=== PATIENT | male | born 1985 | race Caucasian/White ===

== ENCOUNTER 2020-11-24 07:38 | Emergency (ER) | payer BC ==
[~2020-11-24] VITALS: Ht 185.4 cm; Wt 81.8 kg
[~2020-11-24 07:38] MED LIST: ANTIDEPRESSANT; CEPHALEXIN250 M1 PO; CEPHALEXIN500 M1 PO; DICLOXACILLIN250 MG PO; MOTRIN 800800 MG/TAB PO; NO HOME MEDICATIONS; NORCO 325 MG-51 TAB PO; PHENERGAN 25 TA25 MG PO; PROMETHAZINE12.5 M5 PO; ZOVIRAX400 MG PO
[2020-11-24 07:42] VITALS: TEMP 98.1
[2020-11-24] MEDS ORDERED: ROXICODONE 55 MG/TAB PO (09:02)
[2020-11-24] MEDS ORDERED: TYLENOL 325MG325 MG PO (09:02)
[2020-11-24] MEDS ORDERED: CEPHALEXIN500 M1 PO (09:02)
[2020-11-24] MEDS ORDERED: CRUTCHES MC (09:04)
[2020-11-24 09:30] VITALS: BP 117/72; PULSE 65
== END 2020-11-24 09:30 | disposition home or self-care (01) ==
LOC: COL.ER 07:38
DX: S82.201A Unspecified fracture of shaft of right tibia, initial encounter for closed fracture (principal); S81.811A Laceration without foreign body, right lower leg, initial encounter; W26.8XXA Contact with other sharp object(s), not elsewhere classified, initial encounter
CPT/HCPCS: J1885; L1846

== ENCOUNTER 2021-09-09 17:30 | Inpatient (IN) | payer OTHER, BC ==
[~2021-09-09] VITALS: Ht 185.4 cm; Wt 77.3 kg
[~2021-09-09 17:30] MED LIST changes: +CRUTCHES MC; +ROXICODONE 55 MG/TAB PO; +TYLENOL 325MG325 MG PO
[2021-09-09 18:40] LABS: BASO # 0.1 K/mm3 (0.0-0.2); BASO % 0.8 % (0.0-2.0); EOS % 0.1 % (0.0-4.0); GRAN # 5.7 K/mm3 (1.4-6.5); GRAN % 75.2 % (42.2-75.2); HEMATOCRIT 41.8 % (42.0-52.0); HEMOGLOBIN 14.9 g/dl (13.5-18.0); LYMPH # 1.1 K/mm3 (1.2-3.4); LYMPH % 14.4 % (20.0-51.0); MEAN CELL VOLUME 91 fl (80.0-100.0); MEAN CORPUSCULAR HEMOGLOBIN 32 pg (27-31); MEAN CORPUSCULAR HGB CONC 36 g/dl (33.0-37.0); MEAN PLATELET VOLUME 10.5 fl (7.4-10.4); MONO # 0.7 K/mm3 (0.1-0.6); MONO % 9.2 % (1.7-9.3); PLATELET COUNT 160 K/mm3 (130-400); REDCELL DISTRIBUTION WIDTH-CV 11.7 % (11.5-14.5)
[2021-09-09 18:57] LABS: ALBUMIN 4.5 gm/dL (3.5-5.0); BILIRUBIN,TOTAL 0.9 mg/dL (0.2-1.2); CREATININE, serum 0.81 mg/dL (0.72-1.25); POTASSIUM 3.3 mmol/L (3.5-4.5); TOTAL PROTEIN 7.6 gm/dL (6.2-8.1)
[2021-09-10] VITALS (8 sets, daily range): BP systolic 131–152; BP diastolic 86–92; PULSE 60–89; TEMP 98–99
[2021-09-10 08:30] LABS: BASO # 0.1 K/mm3 (0.0-0.2); BASO % 0.8 % (0.0-2.0); EOS # 0.1 K/mm3 (0.0-0.7); EOS % 0.8 % (0.0-4.0); GRAN % 63.9 % (42.2-75.2); HEMATOCRIT 41.2 % (42.0-52.0); HEMOGLOBIN 14.4 g/dl (13.5-18.0); LYMPH # 1.7 K/mm3 (1.2-3.4); LYMPH % 21.8 % (20.0-51.0); MEAN CELL VOLUME 93 fl (80.0-100.0); MEAN CORPUSCULAR HEMOGLOBIN 33 pg (27-31); MEAN CORPUSCULAR HGB CONC 35 g/dl (33.0-37.0); MEAN PLATELET VOLUME 10.4 fl (7.4-10.4); MONO % 12.4 % (1.7-9.3); PLATELET COUNT 134 K/mm3 (130-400); RED BLOOD COUNT 4.41 M/mm3 (4.20-5.60); REDCELL DISTRIBUTION WIDTH-CV 11.8 % (11.5-14.5)
[2021-09-10 08:47] LABS: CALCIUM 8.8 mg/dL (8.4-10.2); CREATININE, serum 0.84 mg/dL (0.72-1.25); POTASSIUM 3.5 mmol/L (3.5-4.5)
--- NOTE | 2021-09-10 09:47 | NUR ---
PT PLEASANT, AOX4, TREMORS AT REST, PT REPORTS X5 DIARRHEA THIS AM, ASSESSMENT PERFORMED, MEDICATIONS GIVEN, YOLIE TERRAZAS GAVE VERBAL ORDER TO ADVANCE PT TO [facility], JELLO GIVEN ALONG WITH GATORADE AND WATER. PT DENIES TAKING MEDICATIONS AT HOME, DENIES ANY ALLERGIES, PT REPORTS SOME UNSTEADINESS WITH AMBULATION SO ENCOURAGED TO CALL PULLEY MAINTAINER LIGHT THE FIRST TIME HE HAS TO GET UP. REPORTS HALLUCINATIONS WHEN HE CLOSES HIS EYES BUT NOT WITH THEM OPEN. DENIES PAIN, DENIES NAUSEA AT THIS TIME. NO OTHER NEEDS
--- NOTE | 2021-09-10 10:32 | NUR ---
First visit from the sand conditioner. No needs right now.
--- NOTE | 2021-09-10 10:34 | NUR ---
First visit from the environmental engineering technician. No needs right now.
--- NOTE | 2021-09-10 11:29 | NUR ---
[facility] met with the patient to discuss discharge plan. The patient lives in [place] with his , Jeff (ph#[phone]). He reports independence with ADLs and does not have any DME. The patient receives primary care from the [facility], but states that he is also established with Dr. Dakota Sullivan. He receives his medications from [facility] and reports no difficulties obtaining his meds. The patient does not have a DPOA-HC and was not interested in completing one while here. The patient plans on returning home with his upon discharge. The patient has a history of alcohol use and has been drinking 10-14 alcoholic beverages daily. The hospitalist notified [facility] that the patient is not interested in inpatient treatment, but interested in resources for outpatient treatment. AVIS addressed this with the patient. The patient reports that he is somewhat interested in outpatient treatment. He was interested in a list of local resources. AVIS provided him with that list. He had no other concerns for [facility]IS at this time. No additional needs at this time. *Discharge plan: home with *
--- NOTE | 2021-09-10 17:38 | NUR ---
PT EAGER FOR DISCHARGE, PT MENTIONS MULTIPLE TIMES HE DOES NOT KNOW WHY HE'S HERE, PT DENIES DIARRHEA DURING SHIFT, PT GOT UP MULTIPLE TIMES ON HIS OWN BUT STEADY, BED ALARM SET. ATIVAN GIVEN PER DETOX SCORING, /GF VISITED EARLIER IN SHIFT, NICOTINE PATCH ORDERED FOR PT, NO OTHER NEEDS
--- NOTE | 2021-09-10 21:00 | NUR ---
Initial shift assessment done- denies pain/SOB,denies diarrhea, denies N/V,, states did eat some of his supper and no nausea. Denies anxiety, VSS, Tele on-SR,, IV fluids of NS w/20meq K at 75cc/hr, scoring 1 on detox protocol at this time
[2021-09-11 00:43] VITALS: BP 150/77; PULSE 76; TEMP 99.1
[2021-09-11 02:32] VITALS: PULSE 78
[2021-09-11 04:20] VITALS: BP 132/88; PULSE 65; TEMP 98.9
--- NOTE | 2021-09-11 04:20 | NUR ---
Awakened for vitals- VSS, very upset, agitated- within minutes patient had ripped IV tubing in half- pulled out IV-- took off all Tele leads- totally dressed- out in the liang stating he is leaving ,will not listen to reasoning-- security notified of aggressive type behavior, Sheila TERRAZAS called -will be up immediately-- Pt signing AMA form, Sheila here to talk with him-had cigarette in his mouth-informed he cannot light that here- - just kept walking down the liang-and left the building AMA. casting and pasting supervisor here
--- NOTE | 2021-09-11 04:37 | NUR ---
Has left the building -AMA
== END 2021-09-11 04:40 | disposition left against medical advice (07) | DRG 894 ==
LOC: COL.ER 17:30 → MEDICAL 20:29
PROVIDERS: Student in an Organized Health Care Education/Training Program; ADMIT Student in an Organized Health Care Education/Training Program
DX: F10.939 Alcohol use, unspecified with withdrawal, unspecified (principal); E87.6 Hypokalemia; F17.210 Nicotine dependence, cigarettes, uncomplicated; Z20.822 Contact with and (suspected) exposure to COVID-19
CPT/HCPCS: 99223-AI; 99233-AI; J1650; J2060; J2405; J3411; J3480; J7030

== ENCOUNTER 2022-01-20 13:04 | Inpatient (IN) | payer OTHER, BC ==
[~2022-01-20] VITALS: Ht 185.4 cm; Wt 72.7 kg
[2022-01-20 13:49] LABS: BASO # 0.1 K/mm3 (0.0-0.2); BASO % 0.8 % (0.0-2.0); GRAN # 7.6 K/mm3 (1.4-6.5); HEMATOCRIT 44.2 % (42.0-52.0); HEMOGLOBIN 16.1 g/dl (13.5-18.0); LYMPH # 0.4 K/mm3 (1.2-3.4); LYMPH % 4.6 % (20.0-51.0); MEAN CELL VOLUME 93 fl (80.0-100.0); MEAN CORPUSCULAR HEMOGLOBIN 34 pg (27-31); MEAN CORPUSCULAR HGB CONC 36 g/dl (33.0-37.0); MEAN PLATELET VOLUME 10.8 fl (7.4-10.4); MONO # 0.6 K/mm3 (0.1-0.6); MONO % 6.4 % (1.7-9.3); PLATELET COUNT 118 K/mm3 (130-400); RED BLOOD COUNT 4.78 M/mm3 (4.20-5.60); REDCELL DISTRIBUTION WIDTH-CV 11.6 % (11.5-14.5)
[2022-01-20 14:08] LABS: ALBUMIN 4.5 gm/dL (3.5-5.0); BILIRUBIN,TOTAL 1.2 mg/dL (0.2-1.2); CALCIUM 9.2 mg/dL (8.4-10.2); CREATININE, serum 0.87 mg/dL (0.72-1.25); MAGNESIUM 1.5 mg/dL (1.6-2.6); POTASSIUM 3.1 mmol/L (3.5-4.5); TOTAL PROTEIN 7.9 gm/dL (6.2-8.1)
[2022-01-20 16:50] VITALS: BP 177/90; PULSE 91; TEMP 99.4
--- NOTE | 2022-01-20 17:34 | NUR ---
THE PATIENT'S LYDIA IS AT THE BEDSIDE. ADMINISTERED ATIVAN AND MEDICATIONS PER MAR UPON ARRIVAL. THE PATIENT'S INITIAL CIWA SCORE IS 11. PATIENT IS A&OX4. DENIES ANY NEEDS AT THIS TIME. 5/10 PAIN IN THE ABDOMEN. THROAT IS VERY SORE FROM THROWING UP. PATIENT STATES 36 TIMES IN THE PAST 24 HOURS. NO OTHER CONCERNS AT THIS TIME. ADMISSION AND INTAKE COMPLETED.
[2022-01-20 18:27] VITALS: BP 149/95; PULSE 80; TEMP 98.6
--- NOTE | 2022-01-20 18:55 | NUR ---
THE PATIENT HAS RETURNED FROM CT AND IS IN BED. ASKED PHOTOGRAPHIC PLATEMAKER TO PLACE YELLOW FALL RISK GOWN AND SOCKS ON THE PATIENT PER FALL RISK PROTOCOL. THE BED ALARM IS ON AND MEDICATIONS GIVEN PER ORDERS. NO OTHER CONERNS WITH THIS PATIENT. REPORT GIVEN TO ODIN HERNANDEZ.
[2022-01-20 20:05] VITALS: BP 151/90; PULSE 94; TEMP 99
--- NOTE | 2022-01-20 20:49 | NUR ---
CIWA-9 , MEDICATED PER PROTOCOL. BED ALARM ON . PT V/U DIRECTIONS OF NOT GETTING UP WITHOUT ASST. NEEDS MET.
[2022-01-20 22:29] VITALS: BP 135/75; PULSE 79; TEMP 98.6
--- NOTE | 2022-01-20 23:18 | NUR ---
PT HAS BEEN SCORING 9 CIWA- ASKED IF I WOULD TAKE HIM OUT FOR CIGARETTE EARLY IN SHIFT, KARI TERRAZAS CALLED, NICOTINE PATCH ORDERED. PT HAS BEEN HERE IN THE PAST AND LEFT AMA. HAS LEARNED HOW TO DISCONNECT IV, TURN OFF IV PUMP, TURN ON AND OFF BED ALARMS. FOUND SETTING ON BENCH IN ROOM WITH ALL LEADS AND IV REMOVED. INSTRUCTED ON SAFTY AND V/U YET DOES OPPOSITE. CONT TO MONITOR BEST CAN. DOOR OPEN AND NEXT TO NURSE STATION.
--- NOTE | 2022-01-20 23:43 | NUR ---
RESTART IV TO LEFT FA, TELE MONITOR REAPPLIED.
[2022-01-21 03:26] VITALS: BP 163/83; PULSE 101; TEMP 99.1
--- NOTE | 2022-01-21 03:44 | NUR ---
HAS PULLED OUT 2 IVS, TOOK TELE OFF REPEATLY; ATIVAN PER ORDER. KARI AND MISBAH HAVE BEEN NOTIFIED OF PT TURNING OFF BED ALARM, IV PUMP WHEN HE WANTS TO GET UP. MONITORING.
[2022-01-21 05:59] VITALS: BP 149/96; PULSE 90; TEMP 98.8
[2022-01-21 06:39] LABS: BASO % 0.5 % (0.0-2.0); EOS # 0.1 K/mm3 (0.0-0.7); GRAN # 4.4 K/mm3 (1.4-6.5); GRAN % 70.5 % (42.2-75.2); LYMPH # 1.2 K/mm3 (1.2-3.4); LYMPH % 19.7 % (20.0-51.0); MEAN CELL VOLUME 95 fl (80.0-100.0); MEAN CORPUSCULAR HEMOGLOBIN 33 pg (27-31); MEAN CORPUSCULAR HGB CONC 35 g/dl (33.0-37.0); MEAN PLATELET VOLUME 11.6 fl (7.4-10.4); MONO # 0.5 K/mm3 (0.1-0.6); PLATELET COUNT 96 K/mm3 (130-400); RED BLOOD COUNT 4.23 M/mm3 (4.20-5.60); REDCELL DISTRIBUTION WIDTH-CV 11.7 % (11.5-14.5)
[2022-01-21 06:52] LABS: ALBUMIN 3.7 gm/dL (3.5-5.0); CALCIUM 8.8 mg/dL (8.4-10.2); CREATININE, serum 0.76 mg/dL (0.72-1.25); MAGNESIUM 1.9 mg/dL (1.6-2.6); PHOSPHOROUS 3.2 mg/dL (2.3-4.7)
[2022-01-21 06:54] LABS: POTASSIUM 2.9 mmol/L (3.5-4.5)
[2022-01-21 06:55] LABS: HEMOGLOBIN 14.1 g/dl (13.5-18.0)
--- NOTE | 2022-01-21 07:41 | NUR ---
PHYSICIAN PLACED ORDER FOR PHARMACY TO DOSE POTASSIUM REPLACEMENT, CALLED PHARMACY AND REPLACEMENT PER POTASSIUM PROTOCOL PLACED IN COMPUTER.
[2022-01-21 08:05] VITALS: BP 135/90; PULSE 85; TEMP 98.1
--- NOTE | 2022-01-21 10:00 | NUR ---
WHEN ENTERING PT ROOM PT NOT ATTACHED TO IV FLUIDS. ATTACHED PT TO NEW BAG OF IV FLUIDS AND NEW TUBING. MORNING PO MEDS GIVEN, ASSESSMENT PERFORMED, PT DENIES HALLUCINATIONS OR N/V. PT NOT REQUIRING ATIVAN AT THIS TIME. TREMORS FELT BUT NOT VISUALIZED. BED ALARM SET. EDUCATED PT TO NOT DETACH HIMSELF FROM IV FLUIDS OR TO GET OUT OF BED WITHOUT ASSISTANCE.
[2022-01-21 10:03] VITALS: BP 124/84; PULSE 83; TEMP 98.6
--- NOTE | 2022-01-21 15:03 | NUR ---
PT STATES "I GOTTA GET OUT OF HERE, I HAVE FAMILY COMING IN THE LOCKED DOOR". EXPLAINED VERY LOW POTASSIUM AND LAB REDRAW, PT AGREEABLE TO SEE WHAT LAB RESULTS
[2022-01-21] MEDS ORDERED: FOLIC ACID 11 MG/TA1 PO (15:51)
[2022-01-21] MEDS ORDERED: NATURE'S BLEND100 M2 PO (15:51)
--- NOTE | 2022-01-21 15:53 | NUR ---
DR. OLSEN NOTIFIED OF NORMAL POTASSIUM LAB. PT STILL WANTS TO LEAVE AMA, PT GIRLFRIEND REQUESTING LIST OF VITAMINS FOR PT TO TAKE AT HOME. DR. OLSEN RECOMENDING THIAMINE, FOLIC ACID AND MULTIVITAMIN AT DOSAGE OF WHAT HE WAS RECIEVING HERE AT HOSPITAL. PT GIRLFRIEND GIVEN LIST OF THESE VITAMINS/DOSAGE/FREQUENCY. IV AND TELE REMOVED. AMA PAPER SIGNED BY PT AND RISKS/BENEFITS OF LEAVING/STAYING WERE REVIEWED. PT THEN WALKED OUT WITH GIRLFRIEND AND PT BELONGINGS, REFUSING WHEELCHAIR OR ASSISTANCE.
== END 2022-01-21 15:59 | disposition left against medical advice (07) | DRG 439 ==
LOC: COL.ER 13:04 → MEDICAL 15:38
PROVIDERS: Emergency Medicine; ADMIT Internal Medicine
DX: K85.20 Alcohol induced acute pancreatitis without necrosis or infection (principal); F10.239 Alcohol dependence with withdrawal, unspecified; F17.210 Nicotine dependence, cigarettes, uncomplicated; E87.6 Hypokalemia; E83.42 Hypomagnesemia
CPT/HCPCS: 99223-AI; J2060; J2405; J3411; J3475; J7030; Q9967

== ENCOUNTER 2022-05-26 02:29 | Inpatient (IN) | payer OTHER, BC ==
[~2022-05-26] VITALS: Ht 185.4 cm; Wt 74.1 kg
[2022-05-26] VITALS (1052 sets, daily range): BP systolic 91–101; BP diastolic 63–69; PULSE 62–73; TEMP 97.5–98; O2SAT 74–100
[~2022-05-26 02:29] MED LIST changes: +CEFTIN500 MG PO; +FOLIC ACID 11 MG/TA1 PO; +NATURE'S BLEND100 M2 PO
[2022-05-26 03:34] LABS: BASO % 0.1 % (0.0-2.0); EOS % 0.1 % (0.0-4.0); GRAN # 13.2 K/mm3 (1.4-6.5); GRAN % 87.8 % (42.2-75.2); LYMPH # 0.9 K/mm3 (1.2-3.4); LYMPH % 6.1 % (20.0-51.0); MEAN CELL VOLUME 94 fl (80.0-100.0); MEAN CORPUSCULAR HGB CONC 37 g/dl (33.0-37.0); MEAN PLATELET VOLUME 11.8 fl (7.4-10.4); MONO # 0.7 K/mm3 (0.1-0.6); MONO % 4.8 % (1.7-9.3); PLATELET COUNT 69 K/mm3 (130-400); RED BLOOD COUNT 3.46 M/mm3 (4.20-5.60); REDCELL DISTRIBUTION WIDTH-CV 11.9 % (11.5-14.5)
[2022-05-26 03:36] LABS: ALBUMIN 3.5 gm/dL (3.5-5.0); BILIRUBIN,TOTAL 1.7 mg/dL (0.2-1.2); CALCIUM 8.2 mg/dL (8.4-10.2); CREATININE, serum 0.75 mg/dL (0.72-1.25); TOTAL PROTEIN 6.4 gm/dL (6.2-8.1)
[2022-05-26 03:39] LABS: POTASSIUM 2.5 mmol/L (3.5-4.5)
[2022-05-26 03:39] LABS: INR 1.2 (0.8-3.0); PROTHROMBIN TIME 13.3 SECONDS (9.7-12.8)
[2022-05-26 03:40] LABS: HEMATOCRIT 32.5 % (42.0-52.0); HEMOGLOBIN 11.9 g/dl (13.5-18.0); MEAN CORPUSCULAR HEMOGLOBIN 34 pg (27-31)
[2022-05-26 04:03] LABS: MAGNESIUM 1.5 mg/dL (1.6-2.6)
[2022-05-26 04:50] LABS: COLLECTION METHOD CLEAN CATCH
[2022-05-26 05:09] LABS: SQUAMOUS EPITHELIAL None Seen /hpf (0-10); TRICYCLIC ANTIDEPRESS URINE NEGATIVE; URINE BACTERIA None Seen /hpf (NONE SEEN); URINE RBC None Seen /hpf (0-2)
[2022-05-26 05:10] LABS: URINE APPEARANCE Clear (CLEAR/HAZY); URINE COLOR Yellow (YELLOW); URINE GLUCOSE Negative (NEGATIVE); URINE KETONE Negative (NEGATIVE); URINE NITRATE Negative (NEGATIVE); URINE PROTEIN(semi-quant) Negative (NEGATIVE)
[2022-05-26 05:11] LABS: URINE BLOOD TRACE-INTACT (NEGATIVE)
--- NOTE | 2022-05-26 05:48 | NUR ---
Patient arrives to unit intubated and sedated. Unable to perform suicide risk assessment or determine travel history or most recent vaccination status. Staff has been unable to get in contact with patient's , Jeff Jackson. Hospitalist, Sheila, has also attempted to make contact with patient's and has been unsuccessful. No other point of contact evident at this time. Unable to complete med rec at this time.
[2022-05-26 06:04] LABS: ARTERIAL BLD GAS O2 SATURATION 99.2 % (92-100); ARTERIAL BLD GAS TCO2 CT 32.4; ARTERIAL BLOOD GAS BASE EXCESS 7.6 (-2-2); ARTERIAL BLOOD GAS HCO3 31.2 meq/L (22-26); ARTERIAL BLOOD GAS PCO2 39.9 mmHg (35-45); ARTERIAL BLOOD GAS pH 7.51 (7.35-7.45)
[2022-05-26 06:05] LABS: ARTERIAL BLOOD GAS PO2 263.8 mmHg (80-100)
[2022-05-26 09:37] LABS: BASO % 0.1 % (0.0-2.0); EOS % 0.1 % (0.0-4.0); GRAN # 8.8 K/mm3 (1.4-6.5); GRAN % 83.1 % (42.2-75.2); HEMOGLOBIN 11.1 g/dl (13.5-18.0); LYMPH # 1.3 K/mm3 (1.2-3.4); LYMPH % 12.5 % (20.0-51.0); MEAN CELL VOLUME 97 fl (80.0-100.0); MEAN CORPUSCULAR HEMOGLOBIN 36 pg (27-31); MEAN CORPUSCULAR HGB CONC 37 g/dl (33.0-37.0); MEAN PLATELET VOLUME 12.2 fl (7.4-10.4); MONO # 0.4 K/mm3 (0.1-0.6); MONO % 3.5 % (1.7-9.3); PLATELET COUNT 63 K/mm3 (130-400); RED BLOOD COUNT 3.12 M/mm3 (4.20-5.60); REDCELL DISTRIBUTION WIDTH-CV 11.9 % (11.5-14.5)
[2022-05-26 09:38] LABS: HEMATOCRIT 30.1 % (42.0-52.0)
[2022-05-26 10:02] LABS: CALCIUM 7.7 mg/dL (8.4-10.2); CREATININE, serum 0.64 mg/dL (0.72-1.25); MAGNESIUM 3.2 mg/dL (1.6-2.6)
[2022-05-26 10:04] LABS: POTASSIUM 2.5 mmol/L (3.5-4.5)
[2022-05-26 11:01] LABS: ARTERIAL BLD GAS TCO2 CT 35.1; ARTERIAL BLOOD GAS BASE EXCESS 8.4 (-2-2); ARTERIAL BLOOD GAS HCO3 33.6 meq/L (22-26); ARTERIAL BLOOD GAS PO2 115.4 mmHg (80-100); ARTERIAL BLOOD GAS pH 7.45 (7.35-7.45)
--- NOTE | 2022-05-26 11:38 | NUR ---
Patient currently intubated. Unable to complete intake. Phone call made to patients Jeff [phone] and was unsuccessful. Mailbox full and unable to leave a message.
--- NOTE | 2022-05-26 12:16 | NUR ---
STARTED TUBE FEED PER ORDER
--- NOTE | 2022-05-26 19:40 | NUR ---
ADVISED DR. OLSEN THAT MRI CAN NOT BE DONE AT THIS TIME TO BEING ON THE VENTILATOR AND THE GTTS.
--- NOTE | 2022-05-26 20:00 | NUR ---
SHIFT REPORT RECEIVED. PT SEDATED ON VENTILATOR. PT AWAKENS EASILY TO SOUND, AGGITATED ON AWAKENINGS. SEIZURE PRECAUTIONS IN PLACE. NORMAL BREATH SOUNDS ALL LUNG ROBLES.
[2022-05-27] VITALS (1407 sets, daily range): BP systolic 101–113; BP diastolic 65–76; PULSE 69–85; TEMP 97.9–99.1; O2SAT 96–100
--- NOTE | 2022-05-27 01:25 | NUR ---
RECEIVED CALL FROM PT'S FOR AN UPDATE. UPDATED THAT WE HAVE HAD TO INCREASE PT SEDATION DUE TO AGITATION. INFORMED THIS NURSE THAT PT IS VET AND HAS PTSD, PREVIOUS [facility] TIME SERVED, AND HAS FREQUENT VIVID NIGHTMARES. WOULD LIKE TO SPEAK TO SW TO GET INFORMATION ON CARE/TREATMENT OPTIONS FOR ETOH ABUSE POST DISCHARGE. WOULD LIKE TO BE CALLED WITH UPDATES ON ANY CHANGE IN PT'S CARE.
--- NOTE | 2022-05-27 03:00 | NUR ---
SI SCREENING UNABLE TO BE COMPLETED DUE TO PT SEDATION. ORAL CARE HELD THIS EVENING DUE TO DIFFICULTY IN MAINTAINING ADEQUATE SEDATION LEVELS. ORAL CARE WILL BE ATTEMPTED AT 0400 AFTER NEXT DOSE OF ATIVAN CAN BE ADMINISTERED.
[2022-05-27 06:20] LABS: BASO % 0.2 % (0.0-2.0); EOS % 0.2 % (0.0-4.0); GRAN # 7.9 K/mm3 (1.4-6.5); GRAN % 81.3 % (42.2-75.2); HEMOGLOBIN 10.9 g/dl (13.5-18.0); LYMPH # 1.2 K/mm3 (1.2-3.4); LYMPH % 12.2 % (20.0-51.0); MEAN CORPUSCULAR HEMOGLOBIN 36 pg (27-31); MEAN CORPUSCULAR HGB CONC 35 g/dl (33.0-37.0); MEAN PLATELET VOLUME 12.7 fl (7.4-10.4); MONO # 0.5 K/mm3 (0.1-0.6); MONO % 5.3 % (1.7-9.3); PLATELET COUNT 65 K/mm3 (130-400); RED BLOOD COUNT 3.02 M/mm3 (4.20-5.60); REDCELL DISTRIBUTION WIDTH-CV 12.3 % (11.5-14.5)
[2022-05-27 06:22] LABS: CALCIUM 7.1 mg/dL (8.4-10.2); CREATININE, serum 0.57 mg/dL (0.72-1.25)
[2022-05-27 06:36] LABS: HEMATOCRIT 30.8 % (42.0-52.0)
[2022-05-27 06:37] LABS: MEAN CELL VOLUME 102 fl (80.0-100.0)
--- NOTE | 2022-05-27 12:00 | NUR ---
TUBE FEED BAG CHANGED AND INCREASED RATE PER PROTOCOL.
--- NOTE | 2022-05-27 12:14 | NUR ---
Patient is on a ventilator. turn out worker contacted spouse, Jeff #[phone] and provided information on alcohol options. Jeff states that patient was at a court ordered inpatient treatment in 2014. Jeff will contact the [facility] and also check with patient's BCBS to inquire about possible inpatient alcohol treatment. Worker advised that when patient is able to communicate with staff, a social media director will discuss patient's willingness for treatment. Jeff states that patient doesn't have a primary care provider and that they are attempting to get into [facility] and patient had an appointment scheduled for today. Jeff states that patient doesn't take any medications and does not have any advance directives. Jeff stated that she and patient are .
--- NOTE | 2022-05-27 16:55 | NUR ---
BESIDE REPORT GIVEN TO KARI LOBATO RN
--- NOTE | 2022-05-27 17:00 | NUR ---
SEDATION VACATION NOT NEEDED. PT WAKES UP FREQUENTLY AGITATED.
--- NOTE | 2022-05-27 21:30 | NUR ---
SINCE ASSUMING CARE OF PT THIS SHIFT, THIS RN HAS TITRATED FENTANYL UP TO 200MCG/HR, PROPOFOL IS AT MAX OF 50MCG/KG/MIN, AND ATIVAN GIVEN PER CIWA SCALE. PT GENERALLY CALM IN BED, BUT VERY AGITATED/RESTLESS WITH ANY TOUCH OR NOISE. SPOKE WITH MK MURPHY AT THIS TIME. SHE WILL ORDER VERSED DRIP TO BE INITIATED NEEDED. PT HAS FOLLOWED COMMANDS TO SQUEEZE HANDS, BUT NOT TRACKING OR CALMING TO VOICE. ALL OTHER MEASURES STABLE. WILL CONTINUE TO MONITOR.
--- NOTE | 2022-05-27 22:00 | NUR ---
BEDSIDE REPORT RECEIVED FROM ODIN FLOYD. PT IS SEDATED, PT ADJUSTS SELF SLIGHTLY IN BED, BUT DOES NOT FOLLOW COMMANDS. PTS VSS. PTS OG IS AT 65CM AT TEETH AND ETT 25 AT TEETH. PTS LUNGS ARE CLEAR, BOWEL SOUNDS ARE ACTIVE IN ALL QUADRANTS. PUPILS ARE SLUGGISH BUT EQUAL.
--- NOTE | 2022-05-27 22:42 | NUR ---
REPORT GIVEN TO ODIN TIRADO. RELINQUISHED PT CARE AT THIS TIME.
[2022-05-28] VITALS (1192 sets, daily range): BP systolic 111–134; BP diastolic 72–94; PULSE 70–133; TEMP 98.4–99.4; O2SAT 92–100
--- NOTE | 2022-05-28 01:37 | NUR ---
PT EXTREMELY AGITATED, ATTEMPTING TO SIT UP IN BED, THROW HIS LEGS OFF THE SIDE, AND ATTEMPTING TO TUG AT HIS ETT. I ATTEMPTED TO EDUCATE AND CALM PT DOWN BY VERBALLY EXPLAINING TO THE PT THAT HE WAS OKAY AND HE NEEDED TO RELAX. PT THEN GAVE THE MIDDLE FINGER AND CONTINUED TO ATTEMPT TO PULL OUT HIS ETT. PT GIVEN ATIVAN TO HELP CALM HIM DOWN.
--- NOTE | 2022-05-28 03:20 | NUR ---
PT EASILY AGITATED, ORAL CARE NOT DONE A RESULT. SUCTIONING PT ONLY NEEDED DUE TO SEVERE AGITATION WITH COMBATIVENESS.
[2022-05-28 05:19] LABS: LIPASE 194 U/L (8-78); TRIGLYCERIDE 1204 mg/dL (0-149)
--- NOTE | 2022-05-28 05:28 | NUR ---
PT HAS REQUIRED MULTIPLE DOSES OF THE MAX DOSE ATIVAN. PT BECOMES VERY AGITATED AND RESTLESS. PT BECOMES VIOLENT AND ATTEMPTS TO SWING AT STAFF. SEDATION VACATION WAS NOT TRIED AT THIS TIME FOR PATIENT SAFETY WELL STAFF.
--- NOTE | 2022-05-28 14:45 | NUR ---
DOCUMENTED AT 1227 BY AD
--- NOTE | 2022-05-28 18:35 | NUR ---
0940- PT BECAME AGITATED AND COMBATIVE DUE HIS CELLPHONE ALARM THAT WENT OFF. PT WAS WAKEN FROM SEDATION. NO CALMING TECHNIQUES WERE EFFECTIVE. PATIENT WAS THRASHING, KICKING, PULLING, GRABBING AT ETT AND STAFF. TWO NURSES, SECURITY, RT AND DR. FLORES BEDSIDE.PT PLACED IN FOUR POINT SOFT RESTRAINTS HE CONTINUED TO KICK AND KNEE STAFF. PT WAS NOT ABLE TO FOLLOW COMMANDS OR CALM. SEDATION INCREASED PER DR. FLORES. PT EVENTUALLY SOME WHAT CALM. ANKLE RESTRAINTS REMOVED AT 1100. SOFT WRIST RESTRAINTS LEFT IN PLACE PATIENT IS IMPULSIVE AND REACHES TO PULL OUT ET TUBE. PTS SEDATION HAS BEEN SLOWLY WEANED DOWN THROUGH OUT THE DAY, WILL CONTINUE TO DECREASE DOSE PATIENT TOLERATES.
--- NOTE | 2022-05-28 18:44 | NUR ---
PTS PHONE WAS TAKEN HOME WITH , LYDIA.
--- NOTE | 2022-05-28 19:56 | NUR ---
RT PERFORMED ORAL CARE ON PT, INITIALLY TOLERATED WELL. WHILE RT AT COMPUTER CHARTING, PT BEGAN TO STIR. WITHIN SECONDS, SITTING UP IN BED, PULLING ARMS TOWARDS ET TUBE. RN AND RT AT BEDSIDE TO HOLD PT, BEGAN KICKING LEGS. PT UNABLE TO COMPREHEND, NOT FOLLOWING COMMANDS OR ANY PURPOSEFUL RESPONSE BESIDES TRYING TO SELF EXTUBATE. ADDITIONAL STAFF AND SECURITY IN ROOM TO HOLD PT. VECCURONIUM GIVEN ALONG WITH INCREASING SEDATION MEDS. AT THIS TIME, PT SEDATED/PARALYZED AND VSS. WILL CONTINUE TO MONITOR.
--- NOTE | 2022-05-28 23:40 | NUR ---
PT RESTING IN BED COMFORTABLY. NO DISTRESS NOTED. RN IN ROOM AT THIS TIME. ORAL CARE RECENTLY PERFORMED.
[2022-05-29] VITALS (905 sets, daily range): BP systolic 114–145; BP diastolic 76–105; PULSE 64–91; TEMP 97.8–98.7; O2SAT 30–100
--- NOTE | 2022-05-29 | NUR ---
TUBE FEED RESTARTED AT 20ML/HR PER DAY SHIFT REPORT STATING TO HOLD UNTIL RESIDUALS WERE CLOSE TO ZERO. RESIDUAL 30ML OF GREEN/DIGESTION LIQUID. TUBE FEED TO INCREASE BY 15ML Q12HRS UNTIL GOAL OF 55ML PER INITIAL DIETITIAN ORDERS.
--- NOTE | 2022-05-29 00:36 | NUR ---
UNPROVOKED, PT AWAKE, EXTREME AGITATION AND VIOLENT BEHAVIOR IN BED ATTEMPTING TO SELF EXTUBATE DESPITE SEDATION MEDS AND BILAT WRIST RESTRAINTS. FOUR STAFF MEMBERS IN ROOM TO HELP CONTROL PATIENT FOR OWN SAFETY. ATIVAN GIVEN AND VECCURONIUM GIVEN. CALL TO ANDREW WOODSON APRN TO NOTIFY VECCURONIUM GIVEN BEFORE FULL 6HRS PASSED SINCE LAST ADMINISTRATION. STATES IS OK, IF NEEDED EARLIER AGAIN, WILL CALL TO E-ICU FOR FURTHER ORDERS.
--- NOTE | 2022-05-29 02:07 | NUR ---
CALL TO DR. LANDEROS AT PT THRASHING IN BED ONCE AGAIN, UNABLE TO CALM. ORDERS RECEIVED. TRIGLYCERIDES REORDERED, WILL RESTART PROPOFOL IF UNDER 400. ALSO, EKG TAKEN, WILL FOLLOW WITH RESULTS OF QTC WITH
--- NOTE | 2022-05-29 02:51 | NUR ---
SPOKE WITH KULDEEP BARCENAS AT LENGTH ABOUT SEDATION WITH THIS PT. HIS RECOMMENDATION IS TO GET TO MAX PRECEDEX OF 1.5 MCG/KG/HR BEFORE STARTING PROPOFOL. MECHANISM OF ACTION WITH PRECEDEX WITH ACT A BENZO SPARING AGENT AND HELP PT MORE WITH ETOH WITHDRAWAL THAN THE PROPOFAL WILL. ALSO SPOKE WITH DR. LANDEROS AGAIN AND SHE AGREES WITH THAT PLAN. WILL CONTINUE TO MONITOR.
--- NOTE | 2022-05-29 05:01 | NUR ---
UNSAFE TO PERFORM SEDATION VACATION FOR THIS PT AT THIS TIME.
[2022-05-29 05:49] LABS: BASO # 0.1 K/mm3 (0.0-0.2); BASO % 0.6 % (0.0-2.0); EOS # 0.2 K/mm3 (0.0-0.7); EOS % 2.1 % (0.0-4.0); GRAN # 6.2 K/mm3 (1.4-6.5); GRAN % 68.5 % (42.2-75.2); HEMOGLOBIN 11.2 g/dl (13.5-18.0); LYMPH # 1.6 K/mm3 (1.2-3.4); LYMPH % 17.4 % (20.0-51.0); MEAN CELL VOLUME 104 fl (80.0-100.0); MEAN CORPUSCULAR HEMOGLOBIN 35 pg (27-31); MEAN CORPUSCULAR HGB CONC 34 g/dl (33.0-37.0); MEAN PLATELET VOLUME 11.1 fl (7.4-10.4); MONO % 10.6 % (1.7-9.3); PLATELET COUNT 144 K/mm3 (130-400); RED BLOOD COUNT 3.22 M/mm3 (4.20-5.60)
[2022-05-29 06:01] LABS: HEMATOCRIT 33.4 % (42.0-52.0)
[2022-05-29 06:12] LABS: ALBUMIN 2.4 gm/dL (3.5-5.0); CALCIUM 8.3 mg/dL (8.4-10.2); CREATININE, serum 0.56 mg/dL (0.72-1.25); MAGNESIUM 1.6 mg/dL (1.6-2.6); PHOSPHOROUS 2.8 mg/dL (2.3-4.7); POTASSIUM 4.1 mmol/L (3.5-4.5)
--- NOTE | 2022-05-29 06:53 | NUR ---
PT IS COMBATIVE AND DOES NOT MEET WEANING REQUIREMENTS
[2022-05-29 07:52] LABS: ARTERIAL BLD GAS O2 SATURATION 88.6 % (92-100); ARTERIAL BLD GAS TCO2 CT 25.8; ARTERIAL BLOOD GAS BASE EXCESS -0.6 (-2-2); ARTERIAL BLOOD GAS HCO3 24.5 meq/L (22-26); ARTERIAL BLOOD GAS PCO2 42.1 mmHg (35-45); ARTERIAL BLOOD GAS PO2 51.8 mmHg (80-100); ARTERIAL BLOOD GAS pH 7.38 (7.35-7.45)
--- NOTE | 2022-05-29 10:21 | NUR ---
Will initiate propofol drip and attempt to wean down versed drip per Dr. Freire. WIll monitor how patient tolerates sedation adjustments.
--- NOTE | 2022-05-29 17:00 | NUR ---
Sedation vacation not performed at this time as patient has a history of becoming extremely agitated with sudden reduction in sedation. Sedation has been slowly decreased during the shift.
--- NOTE | 2022-05-29 17:00 | NUR ---
Tolerating ventilator well; VS stable at this time.
--- NOTE | 2022-05-29 18:52 | NUR ---
PT ET TUBE SUCTIONED, NO RETURN WITH SUCTIONING
--- NOTE | 2022-05-29 18:57 | NUR ---
MUCOMYST NEB GIVEN AFTER DUONEB
[2022-05-30] VITALS (996 sets, daily range): BP systolic 78–123; BP diastolic 48–85; PULSE 77–96; TEMP 98.1–101.8; O2SAT 69–100
--- NOTE | 2022-05-30 | NUR ---
STOPPED TUBE FEED AT THIS TIME RESIDUAL INCREASED TO 375ML. WILL RECHECK IN TWO HOURS.
--- NOTE | 2022-05-30 01:18 | NUR ---
ALBUTEROL NEB ADMINISTERED
--- NOTE | 2022-05-30 01:19 | NUR ---
MUCOMYST 600ML NEB ADMINISTERED
--- NOTE | 2022-05-30 02:00 | NUR ---
TUBE FEED RESIDUAL 180ML. FEED RESTARTED AT 15ML/HR.
[2022-05-30 03:32] LABS: ARTERIAL BLD GAS O2 SATURATION 96.3 % (92-100); ARTERIAL BLD GAS TCO2 CT 23.6; ARTERIAL BLOOD GAS BASE EXCESS -0.4 (-2-2); ARTERIAL BLOOD GAS HCO3 22.6 meq/L (22-26); ARTERIAL BLOOD GAS PCO2 32.3 mmHg (35-45); ARTERIAL BLOOD GAS pH 7.46 (7.35-7.45)
--- NOTE | 2022-05-30 03:35 | NUR ---
PT RESTLESS FOR A BRIEF TIME, TRYING TO SIT UP AND ATTEMPT TO PULL ARMS TO ET TUBE. HOWEVER, ABLE TO CALM AFTER A FEW MINUTES, AND OPENED EYES WHEN RN ASKED PT TO OPEN EYES AND LOOK AT ME. NO OTHER COMMANDS FOLLOWED.
[2022-05-30 05:30] LABS: HEMOGLOBIN 12.5 g/dl (13.5-18.0); MEAN CELL VOLUME 100 fl (80.0-100.0); MEAN CORPUSCULAR HEMOGLOBIN 35 pg (27-31); MEAN CORPUSCULAR HGB CONC 35 g/dl (33.0-37.0); PLATELET COUNT 208 K/mm3 (130-400); RED BLOOD COUNT 3.59 M/mm3 (4.20-5.60); REDCELL DISTRIBUTION WIDTH-CV 12.2 % (11.5-14.5)
[2022-05-30 05:33] LABS: HEMATOCRIT 35.8 % (42.0-52.0)
[2022-05-30 05:40] LABS: ALBUMIN 2.2 gm/dL (3.5-5.0); CALCIUM 8.7 mg/dL (8.4-10.2); CREATININE, serum 0.61 mg/dL (0.72-1.25); MAGNESIUM 1.4 mg/dL (1.6-2.6); PHOSPHOROUS 3.5 mg/dL (2.3-4.7); POTASSIUM 4.2 mmol/L (3.5-4.5)
[2022-05-30 05:57] LABS: BAND 9 % (0-10); LYMPHOCYTE 16 % (20.0-51.0); NEUTROPHILS 70 % (42.0-75.2)
[2022-05-30 05:59] LABS: PLATELET ESTIMATE NORMAL (NORMAL)
--- NOTE | 2022-05-30 06:06 | NUR ---
SEDATION VACATION ENDED, PT BECAME AGITATED. ALL DRIPS BACK TO PREVIOUS DOSES/RATES CHARTED IN DRIP TITATIONS.
--- NOTE | 2022-05-30 06:30 | NUR ---
REPORT RECEIVED FROM ODIN FLOYD; PATIENT CURRENTLY RESTING COMFORTABLY IN BED; PATIENT IS STILL ON VENTILATOR AND IS CURRENTLY BEING SEDATED WITH FENTANYL, PROPOFOL, PRECEDEX AND VERSEDRUNNING INTO HIS RIGHT UPPER ARM PICC. PATIENT'S VITAL SIGNS ARE WITHIN NORMAL LIMITS.
--- NOTE | 2022-05-30 07:55 | NUR ---
On 05/29/22, professor of social work spoke with patient's spouse regarding referral to [facility] for alcohol treatment. Worker provided information on process of referral and that social work will follow and when patient is off the ventilator we will approach about willingness to transfer to treatment. Spouse verbalized understanding of the above information.
--- NOTE | 2022-05-30 08:40 | NUR ---
FENTANYL DECREASED FROM 150 MCG/HR TO 100 MCH/HR PER DR. FLORES'S REQUEST
--- NOTE | 2022-05-30 10:00 | NUR ---
PATIENT UNDERWENT BRONCHOSCOPY TODAY PERFORMED BY DR. FLORES; TIMEOUT WAS DONE AT APPROX 0945. PATIENT TOLERATED PROCEDURE WELL, ALTHOUGH HE BECAME SLIGHTLY AGITATED WHEN THE PROCEDURE BEGAN. APPROPRIATE SEDATION WAS GIVEN PER DR. FLORES AND PATIENT RETURNED TO THE PROPER LEVEL OF SEDATION.
--- NOTE | 2022-05-30 18:37 | NUR ---
SEDATION VACATION NOT PERFORMED TODAY PATIENT GETS EXTREMELY AGITATED AND TRIES TO SELF-EXTUBATE WHEN NOT PROPERLY SEDATED. WILL ATTEMPT WHEN IT IS SAFE FOR PATIENT TO DO SO.
--- NOTE | 2022-05-30 19:06 | NUR ---
ambu bag at head of bed. vent plugged into red outlets. patient wearing restraints x2. rails up x4. water bag replaced for vent. vent wheels locked. pt became aggitated. rn notified. rn administered meds to help with aggitation.
--- NOTE | 2022-05-30 20:00 | NUR ---
PT ASSESSMENT COMPLETED. PT BECAME RESTLESS AND AGITATED AT SHIFT CHANGE. PT SINCE HAS CALMED DOWN AND IS RESTING. PT DOES NOT FOLLOW COMMANDS, BUT WITHDRAWS FROM PAIN. PTS VSS.
--- NOTE | 2022-05-30 20:05 | NUR ---
VERSED DC'D PER DR. FLORES'S ORDER
[2022-05-31] VITALS (1316 sets, daily range): BP systolic 93–104; BP diastolic 54–69; PULSE 72–89; TEMP 97.8–101.4; O2SAT 89–100
--- NOTE | 2022-05-31 00:41 | NUR ---
ASSISTED NURSING WITH BOOSTING IN BED AND ADJUSTING POSITION. RESTRAINT SECURED TO BED AFTERWARDS. NO SIGNS OF DISTRESS. NO COMPLICATIONS. NO CHANGES MADE TO VENT. VENT WHEELS LOCKED. VENT PLUGGED INTO RED OUTLET. AMBUBAG AT HEAD OF BED. RN STILL IN ROOM WHEN MAINTENANCE FOREMAN LEFT.
--- NOTE | 2022-05-31 02:35 | NUR ---
DECREASED PTS PRECEDEX PER ORDER AND DOSED PTS ATIVAN BASED OFF CIWA SCORE. ADMINISTERED 0.5MG OF ATIVAN FOR CIWA SCORE. PT BECAME VERY RESTLESS AND ATTEMPTING TO SELF EXTUBATE AND PULL AT LINES. PTS PRECEDEX INCREASED BACK UP.
--- NOTE | 2022-05-31 03:13 | NUR ---
NO CHANGES AT THIS TIME. TOLERATING WELL. PT BECAME AGGITATED. RN PRESENTED TO ROOM TO ASSIST. CEREAL MILLER STAYED WITH PT WHILE RN WENT TO GET MEDS. AMBU BAG AT HEAD OF BED. RAILS UP. RESTRAINTS ARE SECURE. PATIENT HAD BEGAN TO SIT UP OFF BED AND SHAKE HEAD.. RN ADMINISTERED MEDS. PT RESTING COMFORTABLY WHEN EXITING ROOM
--- NOTE | 2022-05-31 04:16 | NUR ---
NO CHANGES MADE. NO AGGITATION OR DISTRESS NOTED. RAILS UP X4. RESTRAINTS SECURE. AMBU BAG IN ROOM AT [facility]. VENT PLUGGED INTO RED OUTLETS. NO COMPLAINTS VOICED BY NURSE.
--- NOTE | 2022-05-31 05:10 | NUR ---
THROUGHOUT SHIFT PT HAS BEEN TITRATED UP AND DOWN. CURRENTLY PT IS BEING TITRATED DOWN AND IS SLEEPING AND CALM. WILL CONTINUE TO TITRATE DOWN NECESSARY PER ORDER.
[2022-05-31 05:23] LABS: HEMOGLOBIN 11.4 g/dl (13.5-18.0); MEAN CELL VOLUME 101 fl (80.0-100.0); MEAN CORPUSCULAR HEMOGLOBIN 35 pg (27-31); MEAN CORPUSCULAR HGB CONC 35 g/dl (33.0-37.0); MEAN PLATELET VOLUME 11.1 fl (7.4-10.4); PLATELET COUNT 242 K/mm3 (130-400); RED BLOOD COUNT 3.26 M/mm3 (4.20-5.60); REDCELL DISTRIBUTION WIDTH-CV 12.4 % (11.5-14.5)
[2022-05-31 05:35] LABS: HEMATOCRIT 32.9 % (42.0-52.0)
[2022-05-31 05:42] LABS: ALBUMIN 1.9 gm/dL (3.5-5.0); CREATININE, serum 0.63 mg/dL (0.72-1.25); MAGNESIUM 1.6 mg/dL (1.6-2.6); PHOSPHOROUS 3.3 mg/dL (2.3-4.7); POTASSIUM 3.4 mmol/L (3.5-4.5)
[2022-05-31 06:06] LABS: BAND 15 % (0-10); LYMPHOCYTE 6 % (20.0-51.0); NEUTROPHILS 71 % (42.0-75.2); PLATELET ESTIMATE NORMAL (NORMAL)
--- NOTE | 2022-05-31 06:30 | NUR ---
REPORT RECEIVED FROM ODIN TIRADO; PATIENT CURRENTLY RESTING COMFORTABLY IN BED, STILL ON VENTILATOR AND SEDATED WITH FENTANYL, PROPOFOL, AND PRECEDEX RUNNING THROUGH HIS PICC, WELL TPN, RUNNING THROUGH A SEPARATE PORT. PATIENT GETTING POTASSIUM AND MAGNESIUM REPLACED THIS MORNING WELL.
--- NOTE | 2022-05-31 17:44 | NUR ---
SEDATION VACATION NOT PERFORMED TODAY; PER DR. FLORES WE ARE TITRATING DOWN ON THE PRECEDEX AND WILL INCREASE THE PROPOFOL NEEDED. PATIENT STILL GETS AGITATED WHEN NOT PROPERLY SEDATED AND WILL ATTEMPT SEDATION VACATION WHEN PATIENT IS MORE CALM AND BETTER ABLE TO TOLERATE IT.
--- NOTE | 2022-05-31 18:30 | NUR ---
PER DR. FLORES PRECEDEX SHOULD BE WEANED DOWN AND PROPOFOL CAN GO UP IF NECESSARY.
--- NOTE | 2022-05-31 20:00 | NUR ---
SHIFT REPORT RECEIVED. PT SEDATED AND CALM. PT WITH CLEAR LUNG SOUNDS IN ALL ROBLES WITH SLIGHT DIMINISHED SOUNDS IN RT LOWER LOBE. PT SCORING 4/5 ON CIWA. ATIVAN HTML DEVELOPER PER EMAR FOR CIWA SCORING. PT WITH SMALL DIME SIZED DEEP TISSUE WOUND BLANCHABLE ON COCCYX, MEPALEX IN PLACE. SCROTUM RED AND DIAPHORETIC. RT WIRST RADIAL SIDE FRICTION BURN APPROX 2IN LONG. BOWEL SOUNDS HYPOACTIVE.
[2022-06-01] VITALS (1433 sets, daily range): BP systolic 96–122; BP diastolic 57–78; PULSE 77–101; TEMP 97.2–99.4; O2SAT 87–100
--- NOTE | 2022-06-01 05:00 | NUR ---
SEDATION VACATION NOT INDICATED PT HAS BEEN AWAKE AND CALM
[2022-06-01 05:06] LABS: ARTERIAL BLD GAS O2 SATURATION 92.4 % (92-100); ARTERIAL BLD GAS TCO2 CT 22.4; ARTERIAL BLOOD GAS BASE EXCESS -3.6 (-2-2); ARTERIAL BLOOD GAS HCO3 21.2 meq/L (22-26); ARTERIAL BLOOD GAS PCO2 37.8 mmHg (35-45); ARTERIAL BLOOD GAS PO2 63.7 mmHg (80-100); ARTERIAL BLOOD GAS pH 7.37 (7.35-7.45)
[2022-06-01 06:03] LABS: MEAN CELL VOLUME 104 fl (80.0-100.0); MEAN CORPUSCULAR HEMOGLOBIN 35 pg (27-31); MEAN CORPUSCULAR HGB CONC 34 g/dl (33.0-37.0); MEAN PLATELET VOLUME 10.8 fl (7.4-10.4); PLATELET COUNT 260 K/mm3 (130-400); RED BLOOD COUNT 3.11 M/mm3 (4.20-5.60); REDCELL DISTRIBUTION WIDTH-CV 12.7 % (11.5-14.5)
[2022-06-01 06:09] LABS: HEMATOCRIT 32.4 % (42.0-52.0)
[2022-06-01 06:22] LABS: ALBUMIN 1.7 gm/dL (3.5-5.0); CREATININE, serum 0.58 mg/dL (0.72-1.25); MAGNESIUM 1.6 mg/dL (1.6-2.6); PHOSPHOROUS 3.9 mg/dL (2.3-4.7); POTASSIUM 4.2 mmol/L (3.5-4.5)
[2022-06-01 06:38] LABS: BAND 19 % (0-10); EOSINOPHIL 2 % (0-4); LYMPHOCYTE 5 % (20.0-51.0); METAMYELOCYTE 1 % (0-0); MYELOCYTE 1 % (0-0); NEUTROPHILS 66 % (42.0-75.2); PLATELET ESTIMATE NORMAL (NORMAL)
--- NOTE | 2022-06-01 07:35 | NUR ---
RECEIVED BEDSIDE SHIFT REPORT FROM ODIN YEPEZ. PATIENT IS CURRENTLY SEDATED AND INTUBATED. SEE DRIP TITRATION FLOWSHEET. RIGHT UPPER ARM PICC STILL IN PLACE, PATENT WITH GOOD BLOOD RETURN. NOBLE CATHETER STILL IN PLACE, PATENT AND DRAINING TO GRAVITY. PATIENT APPEARS TO BE RESTING WITH EYES CLOSED. LIGHTS ARE DIM TO DECREASE SEDATION.
--- NOTE | 2022-06-01 09:49 | NUR ---
CALLED NEDA FROM DIETARY TO CLARIFY TPN FORMULA CHANGE. STATED THAT ISH WOULD BE IN SHORTLY AND SHE WOULD CONFER WITH HER.
--- NOTE | 2022-06-01 10:30 | NUR ---
DR. FLORES AT BEDSIDE. DISCUSSED PLAN OF CARE. WANTING TO WEAN OFF PRECEDEX AND DOWN ON FENTANYL TO ALLOW FOR BOWEL MOVEMENT. MADE CHANGES TO VENTILATOR SETTINGS. ORDERS RECEIVED. NO OTHER CONCERNS AT THIS TIME.
--- NOTE | 2022-06-01 11:00 | NUR ---
TALKED TO ISH REGARDING TPN FORMULA. OKAY TO GIVE.
--- NOTE | 2022-06-01 11:23 | NUR ---
Vancomycin Initial Dosing Pharmacy Note Ordering provider: Sadaf Tafoya MD Indication/duration: Empiric, 7 days LABS: SCr 0.58, CrCl~161, GFR 128 Recommendation: Give Vancomycin 1.5 gm IV x1 loading dose, then Vancomycin 1 gm IV q8h. Pharmacy will continue to closely monitor. Loading dose: 1.5 grams Maintenance dose: 1 gram every 8 hours Trough goal: 15-20 ug/mL
--- NOTE | 2022-06-01 14:33 | NUR ---
PATIENT'S AND [id number] STOPPED IN FOR AN UPDATE. GIVEN AND ALL QUESTIONS ANSWERED.
--- NOTE | 2022-06-01 17:00 | NUR ---
BEEN GRADUALLY WEANING ON SEDATION ALL DAY. NO NEED FOR SEDATION VACATION TODAY. PATIENT IS ABLE TO TRACK AND FOLLOW COMMANDS
--- NOTE | 2022-06-01 19:56 | NUR ---
RT UNAVAILABLE AT 1900
[2022-06-02] VITALS (1421 sets, daily range): BP systolic 116–143; BP diastolic 72–92; PULSE 68–113; TEMP 98.4–100.3; O2SAT 89–100
[2022-06-02 04:08] LABS: ARTERIAL BLD GAS O2 SATURATION 94.7 % (92-100); ARTERIAL BLD GAS TCO2 CT 23.9; ARTERIAL BLOOD GAS BASE EXCESS 1.1 (-2-2); ARTERIAL BLOOD GAS PCO2 29.4 mmHg (35-45); ARTERIAL BLOOD GAS PO2 64.2 mmHg (80-100); ARTERIAL BLOOD GAS pH 7.51 (7.35-7.45)
--- NOTE | 2022-06-02 05:10 | NUR ---
TAWNY Delacruz' PATIENT RESTING COMFORTABLE, GETS ANXIOUS HOWEVER IS ABLE TO BE TALKED DOWN/ CIWA SCORES 4-6, ATIVAN HELPS
[2022-06-02 06:19] LABS: HEMATOCRIT 32.9 % (42.0-52.0); HEMOGLOBIN 11.2 g/dl (13.5-18.0); MEAN CELL VOLUME 101 fl (80.0-100.0); MEAN CORPUSCULAR HEMOGLOBIN 35 pg (27-31); MEAN CORPUSCULAR HGB CONC 34 g/dl (33.0-37.0); MEAN PLATELET VOLUME 10.4 fl (7.4-10.4); RED BLOOD COUNT 3.25 M/mm3 (4.20-5.60); REDCELL DISTRIBUTION WIDTH-CV 13.2 % (11.5-14.5)
[2022-06-02 06:20] LABS: PLATELET COUNT 375 K/mm3 (130-400)
[2022-06-02 06:37] LABS: BAND 10 % (0-10); EOSINOPHIL 2 % (0-4); LYMPHOCYTE 14 % (20.0-51.0); NEUTROPHILS 67 % (42.0-75.2)
[2022-06-02 06:59] LABS: ARTERIAL BLD GAS O2 SATURATION 96.8 % (92-100); ARTERIAL BLOOD GAS BASE EXCESS 1.9 (-2-2); ARTERIAL BLOOD GAS HCO3 25.8 meq/L (22-26); ARTERIAL BLOOD GAS PCO2 38.3 mmHg (35-45); ARTERIAL BLOOD GAS PO2 81.5 mmHg (80-100); ARTERIAL BLOOD GAS pH 7.45 (7.35-7.45)
[2022-06-02 07:01] LABS: ALBUMIN 1.8 gm/dL (3.5-5.0); BILIRUBIN,TOTAL 0.7 mg/dL (0.2-1.2); CREATININE, serum 0.65 mg/dL (0.72-1.25); MAGNESIUM 1.8 mg/dL (1.6-2.6); PHOSPHOROUS 4.1 mg/dL (2.3-4.7)
[2022-06-02 07:09] LABS: CALCIUM 8.7 mg/dL (8.4-10.2)
--- NOTE | 2022-06-02 20:19 | NUR ---
SEDATION VACATION COMPLETED AT 1051 WHILE SWITCHING FROM PROPOFOL TO VERSED. BEFORE SEDATION VACATION PT WAS NOT OPENING EYES AND NOT FOLLOWING COMMANDS. DURING SEDATION VACATION PT OPENED EYES SPONTANEOUSLY AND SQEEZED RN'S HAND ONE TIME. NO OTHER COMMANDS FOLLOWED.
[2022-06-03] VITALS (1135 sets, daily range): BP systolic 99–145; BP diastolic 62–102; PULSE 73–104; TEMP 97.5–100.5; O2SAT 76–100
[2022-06-03 03:57] LABS: ARTERIAL BLD GAS O2 SATURATION 96.1 % (92-100); ARTERIAL BLD GAS TCO2 CT 26.1; ARTERIAL BLOOD GAS BASE EXCESS 1.5 (-2-2); ARTERIAL BLOOD GAS PCO2 35.7 mmHg (35-45); ARTERIAL BLOOD GAS PO2 78.2 mmHg (80-100); ARTERIAL BLOOD GAS pH 7.46 (7.35-7.45)
[2022-06-03 05:17] LABS: HEMOGLOBIN 10.6 g/dl (13.5-18.0); MEAN CELL VOLUME 103 fl (80.0-100.0); MEAN CORPUSCULAR HEMOGLOBIN 34 pg (27-31); MEAN CORPUSCULAR HGB CONC 33 g/dl (33.0-37.0); MEAN PLATELET VOLUME 10.3 fl (7.4-10.4); PLATELET COUNT 432 K/mm3 (130-400); RED BLOOD COUNT 3.12 M/mm3 (4.20-5.60); REDCELL DISTRIBUTION WIDTH-CV 13.3 % (11.5-14.5)
[2022-06-03 05:22] LABS: CALCIUM 8.4 mg/dL (8.4-10.2); CREATININE, serum 0.58 mg/dL (0.72-1.25); MAGNESIUM 2.1 mg/dL (1.6-2.6); POTASSIUM 3.8 mmol/L (3.5-4.5)
[2022-06-03 05:25] LABS: HEMATOCRIT 32.1 % (42.0-52.0)
[2022-06-03 05:52] LABS: BAND 8 % (0-10); EOSINOPHIL 2 % (0-4); LYMPHOCYTE 22 % (20.0-51.0); MYELOCYTE 1 % (0-0); NEUTROPHILS 60 % (42.0-75.2)
[2022-06-03 05:53] LABS: PLATELET ESTIMATE INCREASED (NORMAL)
--- NOTE | 2022-06-03 08:04 | NUR ---
ODIN RAY REPORTS DR FLORES INITIATED SPONT BREATHING TRIAL AT THIS TIME.
--- NOTE | 2022-06-03 09:00 | NUR ---
PT EXTUBATED TO 2 LPM NC WITHOUT COMPLICATION WITH AND RNs CORY AND SAAD AT BEDSIDE. PT COUGHS AND HAS ORAL SUCTION AVAILABLE. NO STRIDOR, BS CONSISTANT WITH SLILGHT COURSE PRIOR TO EXTUBATION.
--- NOTE | 2022-06-03 10:18 | NUR ---
Initial visit; Patient didn't respond to Fountain Supervisor when she expressed the availability of Spiritual Care, her availability and God's blessings. Patient's thanked Fountain Supervisor for stopping and letting them know about the Spiritual Care and patient and family counseling that is also offered and where her office is located.
--- NOTE | 2022-06-03 12:45 | NUR ---
0900- RN AND RT BEDSIDE. PT EXTUBATED AND TOLERATED WELL. PT PLACED ON 2L O2 VIA NC. PT COUGHS INTERMITTENTLY. LUNG SOUNDS CLEAR. 1232- PT BEDSIDE, PT IS AWAKE AND FOLLOWS COMMANDS. PT FALLS ASLEEP QUICKLY. BED ALARM ON. CALL LIGHT IN REACH
--- NOTE | 2022-06-03 18:32 | NUR ---
Pt has become impulsive and agitated through out the day. CIWAs have been ranging from 9-11 this afternoon. PT does respond well to ativan. Attempted to give patietn a sip of water to see if he would be able to take his PO medication. PT refused. PT states he wants to go home and attempts to get out of bed. PT is able to get legs on side of bed however is too weak to sit up all the way. PT was bedside most of the day and plans to be back in am. Bed alarm is on. call light in reach. Will report to oncoming RN.
--- NOTE | 2022-06-03 20:08 | NUR ---
PATIENT WANTS TO LEAVE, PATIENT IS DISORIENTED, PATIENT BECOMES WEAK WHEN LIFTING LEGS OR SITTING UP SLEEPS WHEN NOT DISTURBED,CAN FOLLOW SIMPLE COMMAND...
[2022-06-04] VITALS (849 sets, daily range): BP systolic 116–143; BP diastolic 79–109; PULSE 68–120; TEMP 98.1–99.3; O2SAT 41–100
[2022-06-04 04:36] LABS: HEMOGLOBIN 11.1 g/dl (13.5-18.0); MEAN CELL VOLUME 101 fl (80.0-100.0); MEAN CORPUSCULAR HEMOGLOBIN 34 pg (27-31); MEAN CORPUSCULAR HGB CONC 34 g/dl (33.0-37.0); MEAN PLATELET VOLUME 10.4 fl (7.4-10.4); PLATELET COUNT 460 K/mm3 (130-400); RED BLOOD COUNT 3.27 M/mm3 (4.20-5.60); REDCELL DISTRIBUTION WIDTH-CV 12.9 % (11.5-14.5)
[2022-06-04 04:59] LABS: BILIRUBIN,TOTAL 0.9 mg/dL (0.2-1.2); CALCIUM 8.4 mg/dL (8.4-10.2); CREATININE, serum 0.58 mg/dL (0.72-1.25); POTASSIUM 3.4 mmol/L (3.5-4.5); TOTAL PROTEIN 6.3 gm/dL (6.2-8.1)
[2022-06-04 05:02] LABS: BAND 6 % (0-10); LYMPHOCYTE 13 % (20.0-51.0); NEUTROPHILS 75 % (42.0-75.2)
[2022-06-04 05:03] LABS: PLATELET ESTIMATE INCREASED (NORMAL)
[2022-06-04 05:05] LABS: POLYCHROMASIA 1+
[2022-06-04 05:06] LABS: STOMATOCYTE 1+
--- NOTE | 2022-06-04 09:52 | NUR ---
BEDSIDE REPORT RECEIVED FROM ODIN ALFARO. MEDS INFUSING ORDERED, SEE MAR. PT IS ON ROOM AIR, MAINTAINING SATS ABOVE 95%. NOBLE CATHETER IN PLACE TO DEPENDENT DRAINAGE. BED ALARM IN PLACE FOR PT SAFETY.
--- NOTE | 2022-06-04 18:27 | NUR ---
PT REFUSED PO MEDS AT MORNING MED PASS. BEDSIDE SWALLOW EVAL DONE BY SPEECH THERAPY AT 1200. PT ABLE TO TAKE SMALL SIPS OF WATER AND BITES OF APPLESAUCE. LIBRIUM AND SEROQUIL GIVEN AT THAT TIME. PT HAS REFUSED ALL OTHER PO MEDS SINCE THAT TIME. PT GIVEN ATIVAN PER ALCOHOL DETOX ORDERS, SEE [facility] FLOWSHEET AND EMAR. PT IS COMBATIVE AND DOES NOT FOLLOW COMMANDS. BED ALARM IN PLACE FOR PT SAFETY.
[2022-06-05] VITALS (404 sets, daily range): BP systolic 85–141; BP diastolic 56–91; PULSE 76–122; TEMP 98.2–98.9; O2SAT 31–100
--- NOTE | 2022-06-05 00:20 | NUR ---
CALL TO CHADD BUCHANAN NP PT CONTINUES TO SCORE 10 OR GREATER ON CIWA AND ATIVAN NOT LASTING MORE THAN AN HOUR TO KEEP PT FROM TRYING TO CLIMB OUT OF BED/REMOVE MONITORING EQUIPMENT. REVIEWED CURRENT SETTINGS AND MEDS, HER RECOMMENDATION IS TO CONTINUE TO INCREASE PRECEDEX TO MAX OF 0.7MCG/KG/HR AND IT INEFFECTIVE, CALL THE EICU CRUCIBLE PACKER FOR FURTHER ASSISTANCE.
--- NOTE | 2022-06-05 03:22 | NUR ---
FIRST TIME OF THE SHIFT THAT PT IS SLEEPING SOUNDLY AND HR AND BP ARE WNL. WILL TITRATE PRECEDEX BACK DOWN FROM THIS TIME TO GAUGE EFFECT.
[2022-06-05 06:02] LABS: HEMOGLOBIN 11.2 g/dl (13.5-18.0); MEAN CELL VOLUME 98 fl (80.0-100.0); MEAN CORPUSCULAR HEMOGLOBIN 33 pg (27-31); MEAN CORPUSCULAR HGB CONC 34 g/dl (33.0-37.0); MEAN PLATELET VOLUME 10.3 fl (7.4-10.4); RED BLOOD COUNT 3.36 M/mm3 (4.20-5.60); REDCELL DISTRIBUTION WIDTH-CV 12.8 % (11.5-14.5)
--- NOTE | 2022-06-05 06:04 | NUR ---
THIS RN HAS NOT LEFT PT'S ROOM SINCE 414. PT RESTLESS, AGITATED BUT NOT VIOLENT, CONTINUALLY STANDING AT SIDE OF BED WANTING TO LEAVE. UNABLE TO TAKE STEPS, BUT STANDS WITH ASSIST OF ONE PERSON. PT NOT ORIENTED TO PLACE OR SITUATION, STATES IS IN "YOUR HOUSE." DOES NOT FOLLOW DIRECTIONS. DURING THIS TIME, RN DID ASSIST PT TO BSC TO HAVE BOWEL MOVEMENT. SPEECH HAS BECOME MORE CLEAR, HOWEVER CONFUSED. THIS IS WITH PT RECEIVING MULTIPLE DOSES OF ATIVAN THROUGHOUT EVENING SHIFT AND PRECEDEX CURRENTLY AT 0.6MCG/KG/HR. PT IS FINALLY LYING IN BED, BUT CONTINUES TO BE RESTLESS.
[2022-06-05 06:17] LABS: ALBUMIN 2.3 gm/dL (3.5-5.0); BILIRUBIN,TOTAL 0.9 mg/dL (0.2-1.2); CALCIUM 9.1 mg/dL (8.4-10.2); CREATININE, serum 0.61 mg/dL (0.72-1.25); MAGNESIUM 2.2 mg/dL (1.6-2.6); POTASSIUM 4.2 mmol/L (3.5-4.5); TOTAL PROTEIN 6.8 gm/dL (6.2-8.1)
[2022-06-05 07:10] LABS: PLATELET COUNT 620 K/mm3 (130-400)
[2022-06-05 07:42] LABS: BAND 3 % (0-10); EOSINOPHIL 4 % (0-4); LYMPHOCYTE 16 % (20.0-51.0); NEUTROPHILS 70 % (42.0-75.2)
[2022-06-05 07:43] LABS: PLATELET ESTIMATE INCREASED (NORMAL)
--- NOTE | 2022-06-05 11:07 | NUR ---
0830: PT AWAKE AND ALERT AT SHIFT CHANGE, TRYING TO GET OUT OF BED BUT VERY WEAK. PT STATES "IM GETTING TIRED OF YOU ALREADY". PT SLURRING WORDS, DIFFICULT TO UNDERSTAND, CONVERSATION CONFUSED. PT UNABLE TO TAKE ALL OF MEDS. PT NEEDS A LOT OF CUEING AND DIRECTION. PT REMAINS ON PRECEDEX AND TPN. CIWA MONITORING IN PROGRESS. 1100: AT BEDSIDE. NO CONCERNS NOTED AT THIS TIME.
--- NOTE | 2022-06-05 19:21 | NUR ---
PT HAS BEEN UP AND DOWN IN BED THE REST OF THE AFTERNOON, DIFFICULT TO REDIRECT, MUMBLING, VERY CONFUSED CONVERSATION AND HARD TO UNDERSTAND. GTT TITRATED PER ORDERS, SEE DOC. PT OCCASIONALLY THINKS HE SEES SOMEONE ELSE IN THE ROOM. PT CONTINUES TO BE ABLE TO STATE BDATE. ATTEMPTS TO REORIENT PT BUT UNSUCCESSFUL. REPORT GIVEN TO ODIN FLOYD.
--- NOTE | 2022-06-05 21:15 | NUR ---
CALL TO [facility] PT INCREASINGLY AGITATED, ATTEMPTING TO GET OUT OF BED, HALLUCINATING. SECURITY IN ROOM WITH RN. ATIVAN RECENTLY GIVEN WITH NO EFFECT, PRECEDEX DRIP STILL INFUSING CURRENTLY AT 0.7MCG/KG/HR. PA STATES WILL CALL TELE ICU FOR FURTHER ADVICE AND WILL RETURN CALL.
--- NOTE | 2022-06-05 22:31 | NUR ---
GEODON IM GIVEN WITH LITTLE EFFECT. PT CONTINUES TO BE RESTLESS, HALLUCINATING, AND CALLING OUT. NOBLE PULLED OUT THIS EVENING SHIFT. PT REPEATEDLY REMOVES PULSE OXIMETER STICKER, HOWEVER SPOT CHECKING PT SHOWS SATURATION 97% +. WILL CONTINUE TO MONITOR.
--- NOTE | 2022-06-05 23:13 | NUR ---
CALLED DR. CARDOZA WITH TELE ICU ABOUT ATIVAN AND GEODON BEING INEFFECTIVE FOR PT. RECEIVED ORDER FOR PHENOBARBITAL IV, ONE TIME. HOWEVER, PT CURRENTLY ASLEEP IN BED OF 2304 FOR THE FIRST TIME THIS SHIFT. WILL HOLD ON MEDICATION AT THIS TIME AND REASSESS NEED. CURRENT VS HR 71, O2 SAT 96% ON RA, 120/82, RESP 26.
[2022-06-06] VITALS (699 sets, daily range): BP systolic 88–120; BP diastolic 51–99; PULSE 64–104; TEMP 97.1–99; O2SAT 79–100
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
--- NOTE | 2022-06-06 02:52 | NUR ---
PT HAS BEEN SLEEPING SINCE 129, VSS.
[2022-06-06 05:05] LABS: HEMOGLOBIN 11.2 g/dl (13.5-18.0); MEAN CELL VOLUME 100 fl (80.0-100.0); MEAN CORPUSCULAR HEMOGLOBIN 34 pg (27-31); MEAN CORPUSCULAR HGB CONC 34 g/dl (33.0-37.0); PLATELET COUNT 657 K/mm3 (130-400); REDCELL DISTRIBUTION WIDTH-CV 12.9 % (11.5-14.5)
--- NOTE | 2022-06-06 05:17 | NUR ---
HAVE HAD RN OR SECURITY SITTING WITH PT SINCE 349. PT HALLUCINATING, RESTLESS. OFTEN STANDING AT SIDE OF BED WITH RN. PT TOO WEAK TO STAND ON OWN OR TAKE ANY STEPS, BUT GETTING STRONGER AT PULLING UP TO STAND. ATIVAN MINIMALLY EFFECTIVE.
[2022-06-06 05:20] LABS: CALCIUM 9.1 mg/dL (8.4-10.2); CREATININE, serum 0.68 mg/dL (0.72-1.25); MAGNESIUM 2.2 mg/dL (1.6-2.6); POTASSIUM 4.2 mmol/L (3.5-4.5)
[2022-06-06 06:49] LABS: BAND 6 % (0-10); EOSINOPHIL 2 % (0-4); LYMPHOCYTE 19 % (20.0-51.0); METAMYELOCYTE 3 % (0-0); NEUTROPHILS 59 % (42.0-75.2)
[2022-06-06 06:50] LABS: PLATELET ESTIMATE INCREASED (NORMAL)
--- NOTE | 2022-06-06 07:00 | NUR ---
REPORT RECEIVED FROM ODIN FLOYD; PATIENT VERY AGITATED AND REQUIRES CONSTANT SUPERVISION. PATIENT YELLS AND CAN BE VIOLENT. VITAL SIGNS ARE WITHIN NORMAL LIMITS. PATIENT ON PRECEDEX TO HELP WITH AGITATION, AND IT IS RUNNING THROUGH HIS RIGHT UPPER ARM PICC, WITH HIS TPN RUNNING THROUGH THE OTHER PORT. PATIENT HAS NO OTHER LINES AT THIS TIME, HE PULLED OUT HIS CATHETER.
--- NOTE | 2022-06-06 08:24 | NUR ---
Patient still confused, disoriented to place and time. RN able to ge the patient up to chair, but is still requiring precedex to decrease agitation. Security called and had to sit with patient over night.
--- NOTE | 2022-06-06 12:32 | NUR ---
AVIS spoke with Adan at [facility] to see if this patient would qualify for their services or not. Clinical referral faxed and after review, Adan will call me.
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
[2022-06-07] VITALS (662 sets, daily range): BP systolic 91–128; BP diastolic 56–94; PULSE 65–123; TEMP 98.1–100.3; O2SAT 74–100
[2022-06-07 06:07] LABS: HEMOGLOBIN 11.6 g/dl (13.5-18.0); MEAN CELL VOLUME 103 fl (80.0-100.0); MEAN CORPUSCULAR HEMOGLOBIN 34 pg (27-31); MEAN CORPUSCULAR HGB CONC 33 g/dl (33.0-37.0); MEAN PLATELET VOLUME 10.4 fl (7.4-10.4); PLATELET COUNT 693 K/mm3 (130-400); RED BLOOD COUNT 3.43 M/mm3 (4.20-5.60); REDCELL DISTRIBUTION WIDTH-CV 13.1 % (11.5-14.5)
[2022-06-07 06:18] LABS: HEMATOCRIT 35.3 % (42.0-52.0)
[2022-06-07 06:39] LABS: CALCIUM 9.1 mg/dL (8.4-10.2); CREATININE, serum 0.71 mg/dL (0.72-1.25); MAGNESIUM 2.2 mg/dL (1.6-2.6); POTASSIUM 4.1 mmol/L (3.5-4.5)
[2022-06-07 06:56] LABS: EOSINOPHIL 1 % (0-4); LYMPHOCYTE 25 % (20.0-51.0); MYELOCYTE 1 % (0-0); NEUTROPHILS 63 % (42.0-75.2)
[2022-06-07 06:57] LABS: PLATELET ESTIMATE INCREASED (NORMAL)
--- NOTE | 2022-06-07 07:25 | NUR ---
CALL PLACED TO DR. JAIN REGARDING PATIENT'S NEED FOR A CENTRAL LLINE PLACEMENT. WILL BE COMING TO PLACE SHORTLY.
--- NOTE | 2022-06-07 07:42 | NUR ---
RECEIVED BEDSIDE SHIFT FROM ODIN CEDENO. PATIENT IN CHAIR PERIODICALLY. MADE MULTIPLE ATTEMPTS TO GET UP UNSUPERVISED, VERY CONFUSED AND UNSTEADY. MUMBLING INCOHERENTLY. EDUCATED PATIENT ON SAFETY AND NEED TO STAY SEATED. CHAIR ALARM GOING OFF REPEATEDLY. PICC LINE WAS IN PLACE BUT CAME OUT WHILE PATIENT WAS TRYING TO EXIT THE CHAIR. WILL CALL SURGERY FOR CENTRAL LINE PLACEMENT. PATIENT'S VITALS ARE STABLE. CALL LIGHT WITHIN REACH.
--- NOTE | 2022-06-07 08:30 | NUR ---
DR. FLORES AT BEDSIDE. DISCUSSED PLAN OF CARE. ORDEREDS RECEIVED AND UPDATE GIVEN.
--- NOTE | 2022-06-07 09:49 | NUR ---
DR. JAIN HERE TO PLACE CENTRAL LINE. SUCCESSFUL. RESUMED ON TPN AND PRECEDEX.
--- NOTE | 2022-06-07 10:00 | NUR ---
DR. MEJIA AT BEDSIDE. DISCUSSED PLAN OF CARE. ORDERS RECEIVED.
--- NOTE | 2022-06-07 12:00 | NUR ---
DR. FLORES WANTING A NEUROLOGY CONSULT. ORDER PLACED AND CONSULT CALLED.
--- NOTE | 2022-06-07 16:59 | NUR ---
DR. PRAJAPATI AT BEDSIDE FOR CONSULT. ASSESSMENT PERFORMED. ORDERS PLACED.
--- NOTE | 2022-06-07 17:25 | NUR ---
PATIENT VERY AGITATED AND TRYING TO GET OUT OF BED. MULTIPLE ATTEMPTS TO CALM AND EDUCATE PATIENT ON SAFETY. STAYED BY PATIENT'S BEDSIDE TO ENSURE SAFETY AND MITTENS PLACED.
--- NOTE | 2022-06-07 19:05 | NUR ---
Received report from ODIN Pritchard.
--- NOTE | 2022-06-07 19:21 | NUR ---
BEDSIDE SHIFT REPORT GIVEN TO ODIN IRIZARRY.
--- NOTE | 2022-06-07 20:24 | NUR ---
Patient requiring near-constant redirection and orientation. Staff member at bedside at all times. Patient is alert, restless, and oriented to self and year. He is still rather confused and exhibits auditory and visual hallucinations. Continues to receive precedex drip, see IV drip titrations. Patient took PO medications whole with applesauce, tolerated well. He frequently kicks legs out of bed and attempts to sit up and climb over bed rails.
[2022-06-08] VITALS (612 sets, daily range): BP systolic 90–144; BP diastolic 49–92; PULSE 48–111; TEMP 97.8–98.8; O2SAT 65–100
[2022-06-08 06:04] LABS: HEMOGLOBIN 10.4 g/dl (13.5-18.0); MEAN CELL VOLUME 101 fl (80.0-100.0); MEAN CORPUSCULAR HEMOGLOBIN 34 pg (27-31); MEAN CORPUSCULAR HGB CONC 34 g/dl (33.0-37.0); MEAN PLATELET VOLUME 10.1 fl (7.4-10.4); PLATELET COUNT 761 K/mm3 (130-400); RED BLOOD COUNT 3.06 M/mm3 (4.20-5.60)
[2022-06-08 06:11] LABS: HEMATOCRIT 30.8 % (42.0-52.0)
[2022-06-08 06:18] LABS: ALBUMIN 2.5 gm/dL (3.5-5.0); BILIRUBIN,TOTAL 0.5 mg/dL (0.2-1.2); CREATININE, serum 0.67 mg/dL (0.72-1.25); POTASSIUM 3.8 mmol/L (3.5-4.5); TOTAL PROTEIN 6.6 gm/dL (6.2-8.1)
--- NOTE | 2022-06-08 06:18 | NUR ---
Patient has slept 1-2 hour increments throughout shift, totalling about 5 hours of sleep. He is more awake and restless than not; has difficulty falling asleep.
[2022-06-08 06:29] LABS: BAND 7 % (0-10); EOSINOPHIL 1 % (0-4); LYMPHOCYTE 22 % (20.0-51.0); NEUTROPHILS 64 % (42.0-75.2); PLATELET ESTIMATE INCREASED (NORMAL)
[2022-06-08 06:31] LABS: HYPOCHROMIA 1+; STOMATOCYTE 1+
[2022-06-08 06:41] LABS: BILIRUBIN,DIRECT 0.3 mg/dL (0.0-0.5)
--- NOTE | 2022-06-08 07:30 | NUR ---
PT PRECEDEX PLACED ON STANDBY.
--- NOTE | 2022-06-08 08:00 | NUR ---
PT ROOM WAS CHANGED FROM ICU4 TO ICU1 FOR THE WINDOW TO HELP ORIENTATE PT EASIER TO TIME.
--- NOTE | 2022-06-08 08:15 | NUR ---
PT WAS ABLE TO WALK UP AND DOWN THE ICU [place] WITH PT AND MINIMAL SUPPORT. PT ALSO WENT OUT TO THE COURT YARD WITH THIS NURSE VIA WHEELCHAIR. PT STAYED OUTSIDE FOR 10 MINUTES UNTIL PT STATED HE HAD TO USE THE BATHROOM.
--- NOTE | 2022-06-08 08:30 | NUR ---
PT IS STARTING TO NOT FOLLOW DIRECTIONS EASILY ANYMORE, PT WILL BE SITTING IN RECLINER AND THEN TRYING TO GET UP AND FEEL FOR SOMETHING ON THE GROUND.
--- NOTE | 2022-06-08 09:56 | NUR ---
PT IS AGGITATED AND STATES " I WANT TO SMOKE A CIGARETTE". PT IS STILL HALLUCINATING AND TALKS TO OTHERS IN THE ROOM. THIS NURSE TRIES TO REORIENTATE BUT PT IS NOT ACCEPTING AT THIS TIME.
--- NOTE | 2022-06-08 09:59 | NUR ---
THIS NURSE CAN TO STAY AT BEDSIDE CONSTANTLY. 1:1 PT IS IMPULSIVE AND WILL TRY TO GET OUT OF BED/RECLINER AND VERBAL REDIRECTION DOES NOT WORK.
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
--- NOTE | 2022-06-08 10:22 | NUR ---
PT CONTINUES TO TRY AND GET OUT OF BED.
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
--- NOTE | 2022-06-08 16:37 | NUR ---
PT IS LAYING COMFRTABLY IN BED. PT IS MUMBLING WHEN NO ONE IS IN ROOM.
--- NOTE | 2022-06-08 17:43 | NUR ---
LEFT FOOT RELEASED FROM RESTRAINTS.
--- NOTE | 2022-06-08 19:00 | NUR ---
BEDSIDE REPORT RECEIVED FROM ODIN SMITH. PT CURRENTLY ASLEEP WITH THREE POINT LOCKED RESTRAINTS. AT THIS TIME, REMOVED RLE LOCKED RESTRAINTS, SO ONLY WRISTS REMAIN IN PLACE. GOOD CIRCULATION IN BUE. WILL CONTINUE TO MONITOR AND EVALUATE FOR NEED OF RESTRAINS Q15MIN. PRECEDEX DRIP AT 0.7MCG/KG/HR AND TPN WITH LIPIDS INFUSING. WILL LET PT SLEEP LONG ABLE, AND ATTEMPT TO TITRATE PRECEDEX DRIP DOWN THIS SHIFT. 1:1 MONITORING WITH RN AT THIS TIME.
--- NOTE | 2022-06-08 19:55 | NUR ---
PT ASLEEP, WILL REMOVE RESTRAINTS AT THIS TIME.
--- NOTE | 2022-06-08 21:27 | NUR ---
PT SLEEPING WELL, DIFFICULT TO GET TO OPEN EYES, HOWEVER MOVING ALL EXTREMETIES AND MUMBLING IN HIS SLEEP. PUPILS EQUAL AND REACTIVE. PRECEDEX TITRATED DOWN, SEE FLOWSHEET. ONE INCIDENCE OF BRADYCARDIA TO 48, NOT SUSTAINED. WILL CONTINUE TO MONITOR.
--- NOTE | 2022-06-08 23:19 | NUR ---
PT AWAKE, RESTESS, CONTINUALLY TRYING TO GET OUT OF BED. THINKS HE IS AT WORK AND TALKING ABOUT JOBS HE NEEDS TO DO. TALKING TO PEOPLE IN ROOM NOT HERE. UNABLE TO REORIENT. STAFF IN ROOM WITH PT AT ALL TIMES.
[2022-06-09] VITALS (164 sets, daily range): BP systolic 87–133; BP diastolic 53–79; PULSE 68–115; TEMP 97.4–98.9; O2SAT 77–100
--- NOTE | 2022-06-09 01:22 | NUR ---
PT FELL ASLEEP AT 0100. LYDIA, PT'S SO, CALLED AND SPOKE WITH RN TO RECEIVE UPDATE FOR THIS SHIFT. MADE AWARE PT NO LONGER HAS LOCKED RESTRAINTS, NO SIGNS OF VIOLENCE THIS SHIFT, HOWEVER STILL VERY DISORIENTED AND AGITATED AT TIMES.
[2022-06-09 06:14] LABS: ALBUMIN 2.8 gm/dL (3.5-5.0); BILIRUBIN,TOTAL 0.6 mg/dL (0.2-1.2); CALCIUM 9.3 mg/dL (8.4-10.2); CREATININE, serum 0.69 mg/dL (0.72-1.25); MAGNESIUM 1.9 mg/dL (1.6-2.6); PHOSPHOROUS 4.3 mg/dL (2.3-4.7); TOTAL PROTEIN 6.7 gm/dL (6.2-8.1)
--- NOTE | 2022-06-09 06:43 | NUR ---
Patient has EEG ordered. Cannot perform here because we do not have a functioning EEG machine till end of June.
--- NOTE | 2022-06-09 07:32 | NUR ---
PT ASLEEP AT TIME OF SHIFT CHANGE/ REPORT THIS AM. DUE TO AGGRESSIVE HISTORY AND PSYCHOSIS RESPONSE, WILL MONITOR PT WHILE ASLEEP AND DELAY ASSESSMENT UNTIL MORNING MEDICATION PASS.
--- NOTE | 2022-06-09 09:24 | NUR ---
PT IN BED AT TIME OF ASSESSMENT. SLOWLY ATTEMPTING TO EXIT BED WHENEVER THIS NURSE ISNT DIRECTLY ENCOURAGING HIM TO REMAIN IN BED.
--- NOTE | 2022-06-09 10:13 | NUR ---
AVIS spoke with Adan at [facility] who states that they would be able to accept this patient, but the patient would have to be willing to go. Per patients RN, patient is still disoriented and attempting to climb out of bed. Awaiting clarification from Adan on if the patients can consent on his behalf.
--- NOTE | 2022-06-09 11:17 | NUR ---
PT INCREASINGLY AGITATED AND ATTEMPTING TO GET OUT OF BED. PT PULLING AT LINES AND CORDS ATTACHED TO MONITOR. MITTENS APPLIED AT THIS TIME AND WILL CONTINUE TO MONITOR.
--- NOTE | 2022-06-09 12:27 | NUR ---
BLADDER SCAN OF PT SHOWED 700 ML OF URINE RETENTION. UPON RETURNING TO ROOM TO PERFORM STRAIGHT CATH, PT HAD LARGE INCONTINENT VOID IN BED. LINENS CHANGED AND PERSONAL CARE PERFORMED. WILL DELAY STRAIGHT CATH AND MONIOR FOR NEED.
--- NOTE | 2022-06-09 19:00 | NUR ---
Received report from ODIN Ortega. Patient resting quietly in bed watching television. He is alert but confused. Pleasant at this time and agreeable with cares; he follows verbal commands. Continues to receive precedex drip, see IV drip titrations. Mitts in place for protection of IV lines. All vitals within normal limits. He denies having any pain.
[2022-06-10] VITALS (13 sets, daily range): BP systolic 90–123; BP diastolic 50–98; PULSE 77–114; TEMP 97.8–98.9; O2SAT 96
[2022-06-10 04:27] LABS: HEMOGLOBIN 12.2 g/dl (13.5-18.0); MEAN CELL VOLUME 99 fl (80.0-100.0); MEAN CORPUSCULAR HEMOGLOBIN 34 pg (27-31); MEAN CORPUSCULAR HGB CONC 34 g/dl (33.0-37.0); MEAN PLATELET VOLUME 9.8 fl (7.4-10.4); PLATELET COUNT 768 K/mm3 (130-400); RED BLOOD COUNT 3.64 M/mm3 (4.20-5.60); REDCELL DISTRIBUTION WIDTH-CV 13.1 % (11.5-14.5)
[2022-06-10 04:30] LABS: HEMATOCRIT 35.9 % (42.0-52.0)
[2022-06-10 04:43] LABS: CALCIUM 8.9 mg/dL (8.4-10.2); CREATININE, serum 0.65 mg/dL (0.72-1.25); MAGNESIUM 1.9 mg/dL (1.6-2.6); POTASSIUM 3.7 mmol/L (3.5-4.5)
[2022-06-10 05:27] LABS: EOSINOPHIL 2 % (0-4); LYMPHOCYTE 17 % (20.0-51.0); NEUTROPHILS 74 % (42.0-75.2)
[2022-06-10 05:28] LABS: PLATELET ESTIMATE INCREASED (NORMAL)
[2022-06-10 05:29] LABS: STOMATOCYTE 1+
--- NOTE | 2022-06-10 06:40 | NUR ---
Patient ambulated to the end of ICU hallway, approximately 200 feet, using gait belt, walker, and total of three staff members. Gait very unsteady; patient followed with wheelchair.
--- NOTE | 2022-06-10 07:00 | NUR ---
REPORT RECEIVED FROM ODIN IRIZARRY; PATIENT CURRENTLY RESTING IN BED WITH VITAL SIGNS WITHIN NORMAL LIMITS. PATIENT IS STILL ON PRECEDEX DRIP RUNNING THROUGH A RIGHT IJ CENTRAL LINE, WELL TPN. PATIENT HAS NO OTHER TUBES OR LINES AT THIS TIME.
--- NOTE | 2022-06-10 08:44 | NUR ---
Clinical updates faxed to Adan at [facility]
--- NOTE | 2022-06-10 13:04 | NUR ---
Clinical updates faxed to Adan at [facility] At this time the patient is still not oriented enought to not need a sitter.
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
--- NOTE | 2022-06-10 19:00 | NUR ---
Received report from ODIN Flores. Patient ambulated to telemetry desk, approximately 100 feet. Gait belt and walker used; gait unsteady. Patient returned to room via wheelchair. Tolerated activity well.
[2022-06-11] VITALS (219 sets, daily range): BP systolic 94–148; BP diastolic 53–95; PULSE 80–142; TEMP 97.5–98.9; O2SAT 88–99
[2022-06-11 05:03] LABS: HEMOGLOBIN 11.7 g/dl (13.5-18.0); MEAN CELL VOLUME 100 fl (80.0-100.0); MEAN CORPUSCULAR HEMOGLOBIN 34 pg (27-31); MEAN CORPUSCULAR HGB CONC 34 g/dl (33.0-37.0); MEAN PLATELET VOLUME 10.3 fl (7.4-10.4); RED BLOOD COUNT 3.42 M/mm3 (4.20-5.60); REDCELL DISTRIBUTION WIDTH-CV 13.1 % (11.5-14.5)
[2022-06-11 05:23] LABS: HEMATOCRIT 34.1 % (42.0-52.0); PLATELET COUNT 660 K/mm3 (130-400)
[2022-06-11 05:26] LABS: ALBUMIN 2.8 gm/dL (3.5-5.0); BILIRUBIN,TOTAL 0.5 mg/dL (0.2-1.2); CALCIUM 9.1 mg/dL (8.4-10.2); CREATININE, serum 0.73 mg/dL (0.72-1.25); MAGNESIUM 1.9 mg/dL (1.6-2.6); POTASSIUM 3.9 mmol/L (3.5-4.5); TOTAL PROTEIN 6.5 gm/dL (6.2-8.1)
[2022-06-11 06:31] LABS: BAND 1 % (0-10); EOSINOPHIL 3 % (0-4); LYMPHOCYTE 30 % (20.0-51.0); NEUTROPHILS 62 % (42.0-75.2); PLATELET ESTIMATE INCREASED (NORMAL)
--- NOTE | 2022-06-11 07:48 | NUR ---
REPORT RECEIVED FROM ODIN IRIZARRY. PT AWAKE AND ALERT, DISORIENTED TO TIME, PLACE, SITUATION. CONVERSATION VERY CONFUSED AND PT MUMBLING. PRECEDEX GTT AND TPN RUNNING TO TRIPLE RIJ W/O ISSUE. PT NEEDS CONSTANT REDIRECTION.
--- NOTE | 2022-06-11 10:00 | NUR ---
PT REFUSED THIS NURSE TO TAKE TEMP FOR 1000 CIWA/VS. PT REFUSES ANY WATER AT THIS TIME.
--- NOTE | 2022-06-11 10:20 | NUR ---
PRECEDEX GTT DC'D. PT TITRATED DOWN AND IS STOPPED AT THIS TIME.
--- NOTE | 2022-06-11 12:30 | NUR ---
PT REFUSES BLOOD SUGAR CHECK
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
--- NOTE | 2022-06-11 13:56 | NUR ---
PT REMAINS IN RESTRAINTS. PT ASKED FOR KNIVES. PT STATED "TO CUT THIS SHIT OFF". PT CONTINUES TO MUMBLE, DOESN'T MAKE SENSE, CONVERSATION CONFUSED.
--- NOTE | 2022-06-11 14:19 | NUR ---
PT SITTING IN BED. PT CALM AND THEN STARTS YELLING OUT AND SHAKING BED RAIL. PT YELLED THAT HE WANTED FOOD. WHEN ASKED IF HE WAS HUNGRY PT STATED "I JUST WANT TO GET OUT OF HERE.". TRAY ORDERED FOR PT.
--- NOTE | 2022-06-11 16:18 | NUR ---
THIS NURSE TALKED TO DR BURROUGHS. PT STILL TRYING TO GET OUT OF BED EVEN WITH RESTRAINTS ON. PT SHAKING BED RAILS, TALKING BACK TO NURSING STAFF. PT IN AND OUT OF FOLLOWING DIRECTIONS OR ALLOWING CARES TO BE PROVIDED. PT DID ALLOW THIS NURSE TO WASH PTS HAIR AND HE DID EAT A FEW BITES OF LUNCH TRAY. PT HR ELEVATED, BP INCREASING. PT REMAINS SR. DR. BURROUGHS PLACED NEW ORDER FOR RESTRAINTS.
--- NOTE | 2022-06-11 17:27 | NUR ---
PT REMAINS IN RESTRAINTS. YELLING OUT, ATTEMPTING TO CLIMB OUT OF BED EVEN WITH RESTRAINTS. PT BITING AT RESTRAINTS. ATTEMPTS AT REDIRECTION ARE UNSUCCESSFUL
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
--- NOTE | 2022-06-11 20:24 | NUR ---
SPOKE WITH PROVIDER (ANDREW WOODSON) ABOUT PATIENT'S BEHAVIOR. PROVIDER WILL RENEW VIOLENT RESTRAINT ORDER AND COME ASSESS PATIENT AT BEDSIDE.
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
--- NOTE | 2022-06-11 23:00 | NUR ---
PATIENT SWITCHED TO 4 POINT SOFT RESTRAINTS AT 2240 (06/11). WILL CONTINUE TO MONITOR AND CONTACT SECURITY & PROVIDER IF PATIENT BECOMES VIOLENT AGAIN.
[2022-06-12] VITALS (850 sets, daily range): BP systolic 108–134; BP diastolic 76–111; PULSE 101–141; TEMP 98–99.3; O2SAT 79–100
[2022-06-12 06:32] LABS: BASO # 0.1 K/mm3 (0.0-0.2); BASO % 0.7 % (0.0-2.0); EOS # 0.3 K/mm3 (0.0-0.7); EOS % 1.8 % (0.0-4.0); GRAN # 10.3 K/mm3 (1.4-6.5); GRAN % 69.8 % (42.2-75.2); HEMATOCRIT 37.8 % (42.0-52.0); HEMOGLOBIN 12.8 g/dl (13.5-18.0); LYMPH # 2.6 K/mm3 (1.2-3.4); LYMPH % 17.7 % (20.0-51.0); MEAN CELL VOLUME 100 fl (80.0-100.0); MEAN CORPUSCULAR HEMOGLOBIN 34 pg (27-31); MEAN CORPUSCULAR HGB CONC 34 g/dl (33.0-37.0); MEAN PLATELET VOLUME 10.1 fl (7.4-10.4); MONO # 1.3 K/mm3 (0.1-0.6); MONO % 8.6 % (1.7-9.3); PLATELET COUNT 661 K/mm3 (130-400); RED BLOOD COUNT 3.79 M/mm3 (4.20-5.60); REDCELL DISTRIBUTION WIDTH-CV 12.8 % (11.5-14.5)
[2022-06-12 06:46] LABS: ALBUMIN 3.2 gm/dL (3.5-5.0); BILIRUBIN,TOTAL 0.6 mg/dL (0.2-1.2); CALCIUM 9.7 mg/dL (8.4-10.2); CREATININE, serum 0.73 mg/dL (0.72-1.25); MAGNESIUM 1.9 mg/dL (1.6-2.6); POTASSIUM 3.8 mmol/L (3.5-4.5); TOTAL PROTEIN 7.2 gm/dL (6.2-8.1)
--- NOTE | 2022-06-12 08:03 | NUR ---
BEDSIDE REPORT RECEIVED FROM ODIN CEDENO. PT IS LAYING IN BED, 4 PO[address] SOFT RESTRAINTS IN PLACE. PULSES STRONG AND EQUAL IN ALL EXTREMETIES. TPN INFUSING TO RIJ TRIPLE LUMEN. BED ALARM IN PLACE.
--- NOTE | 2022-06-12 11:58 | NUR ---
PT RESTED QUIETLY IN BED FROM 0800 TO 1000. INCONTINENCE BRIEF CHANGED AT 1015, GROIN IS SLIGHTLY REDDENED BUT SKIN IS INTACT, MICONAZOLE POWDER APPLIED. MEPELEX DRESSING APPLIED TO OPEN AREA ON COCCYX. PT HAS TROUBLE SWALLOWING SIPS OF WATER AND PILLS W/ PUDDING DUE TO DROWSINESS. WILL CONTINUE TO MONITOR PT'S ABILITY TO SWALLOW WHEN PT IS MORE ALERT.
--- NOTE | 2022-06-12 18:32 | NUR ---
PT EVALUATED BY SPEECH THERAPY THIS AFTERNOON, THERAPIST RECOMMENDS PT DIET BE CHANGED TO NPO. DR CHERRY NOTIFIED, ORDER CHANGED. PT IS STILL ABLE TO TAKE PO MEDS CRUSHED IN SMALL BITES OF PUDDING. PT BECAME INCREASINGLY AGITATED LATER IN THE AFTERNOON, DOES NOT FOLLOW COMMANDS, ATTEMPTS TO PULL AT IV LINES AND IS COMBATIVE W/ STAFF. 2 POINT SOFT WRIST RESTRAINTS AND BED ALARM IN PLACE AT THIS TIME.
[2022-06-13] VITALS (368 sets, daily range): BP systolic 97–136; BP diastolic 72–98; PULSE 95–138; TEMP 97.8–99.4; O2SAT 68–100
[2022-06-13 07:06] LABS: BASO # 0.1 K/mm3 (0.0-0.2); BASO % 0.9 % (0.0-2.0); EOS # 0.3 K/mm3 (0.0-0.7); EOS % 2.8 % (0.0-4.0); GRAN # 7.8 K/mm3 (1.4-6.5); GRAN % 69.6 % (42.2-75.2); HEMATOCRIT 37.1 % (42.0-52.0); HEMOGLOBIN 12.4 g/dl (13.5-18.0); LYMPH # 1.9 K/mm3 (1.2-3.4); LYMPH % 16.6 % (20.0-51.0); MEAN CELL VOLUME 101 fl (80.0-100.0); MEAN CORPUSCULAR HEMOGLOBIN 34 pg (27-31); MEAN CORPUSCULAR HGB CONC 33 g/dl (33.0-37.0); MEAN PLATELET VOLUME 10.4 fl (7.4-10.4); MONO % 8.9 % (1.7-9.3); PLATELET COUNT 579 K/mm3 (130-400); RED BLOOD COUNT 3.68 M/mm3 (4.20-5.60); REDCELL DISTRIBUTION WIDTH-CV 12.7 % (11.5-14.5)
[2022-06-13 07:14] LABS: BILIRUBIN,TOTAL 0.7 mg/dL (0.2-1.2); CALCIUM 9.3 mg/dL (8.4-10.2); CREATININE, serum 0.72 mg/dL (0.72-1.25); MAGNESIUM 1.7 mg/dL (1.6-2.6); POTASSIUM 3.5 mmol/L (3.5-4.5); TOTAL PROTEIN 6.8 gm/dL (6.2-8.1)
--- NOTE | 2022-06-13 08:14 | NUR ---
BEDSIDE REPORT RECEIVED FROM ODIN CEDENO. PT RESTING IN BED QUIETLY AT THIS TIME. 2 POINT WRIST RESTRAINTS AND BED ALARM IN PLACE. TPN INFUSING ORDERED. VITAL SIGNS STABLE AT THIS TIME. CALL LIGHT IN REACH.
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
--- NOTE | 2022-06-13 18:35 | NUR ---
WHEN THIS NURSE ENTERED PT ROOM PT STATES, "WHAT, DID I PISS YOU OFF OR SOMETHING." NURSE CONTINUED W/ NECESSARY CARES. VSS, PULSES STRONG AND EQUAL IN ALL EXTREMETIES.
--- NOTE | 2022-06-13 19:00 | NUR ---
SHIFT REPORT RECEIVED. PT IN 4 POINT RESTRAINTS. PT AWAKE, MUMBLING INCOHERENTLY, UNABLE TO ANSWER QUESTIONS, NOT ORIENTED. PT WITH VERBAL OUTBURSTS. CIRCULATION CHECKED. WATER AND TOILTING OFFERED AND REFUSED. PT IS 1:1.
[2022-06-14] VITALS (372 sets, daily range): BP systolic 101–139; BP diastolic 65–109; PULSE 84–135; TEMP 98–99.2; O2SAT 65–100
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
[2022-06-14 04:56] LABS: BASO # 0.1 K/mm3 (0.0-0.2); BASO % 0.7 % (0.0-2.0); EOS # 0.5 K/mm3 (0.0-0.7); EOS % 6.4 % (0.0-4.0); GRAN # 4.1 K/mm3 (1.4-6.5); GRAN % 48.9 % (42.2-75.2); HEMATOCRIT 37.7 % (42.0-52.0); LYMPH # 2.7 K/mm3 (1.2-3.4); LYMPH % 31.9 % (20.0-51.0); MEAN CELL VOLUME 99 fl (80.0-100.0); MEAN CORPUSCULAR HEMOGLOBIN 34 pg (27-31); MEAN CORPUSCULAR HGB CONC 35 g/dl (33.0-37.0); MEAN PLATELET VOLUME 9.9 fl (7.4-10.4); MONO # 0.9 K/mm3 (0.1-0.6); MONO % 11.1 % (1.7-9.3); PLATELET COUNT 518 K/mm3 (130-400); RED BLOOD COUNT 3.82 M/mm3 (4.20-5.60); REDCELL DISTRIBUTION WIDTH-CV 12.7 % (11.5-14.5)
[2022-06-14 05:14] LABS: ALBUMIN 3.1 gm/dL (3.5-5.0); BILIRUBIN,TOTAL 0.4 mg/dL (0.2-1.2); CALCIUM 9.2 mg/dL (8.4-10.2); CREATININE, serum 0.65 mg/dL (0.72-1.25); MAGNESIUM 1.9 mg/dL (1.6-2.6); POTASSIUM 4.1 mmol/L (3.5-4.5); TOTAL PROTEIN 6.9 gm/dL (6.2-8.1)
--- NOTE | 2022-06-14 05:14 | NUR ---
PT REPEATEDLY PULLING AND BITING AT RESTRAINTS. WHEN THIS NURSE ASKS PT TO PLEASE STOP BITING AND PULLING PT WILL SAY HE NEEDS TO GO TO WORK. PT DOES NOT BELIEVE THAT HE IS IN A HOSPITAL, UNABLE TO ORIENT PT TO HOSPITAL SETTING DESPITE MULTIPLE ATTEMPTS.
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
--- NOTE | 2022-06-14 09:54 | NUR ---
PT RESTING IN BED, ATTEMPTS MADE TO ADMINSTER MEDICATIONS WITH APPLESAUCE. PT ACCEPTING ONE MINUTE AND THEN REFUSING THE NEXT. PT CLOSES EYES AND IS HAVING MOMENTS OF CRYING AND THEN MOMENTS OF YELLING OUT. CONVERSATION IS STILL MUMBLED AND CONFUSED.
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
--- NOTE | 2022-06-14 15:01 | NUR ---
PT LAYING IN BED. TALKING TO HIMSELF OR TO BEDSIDE RAILS. CONVERSATION EXTREMELY CONFUSED AND ALL OVER THE PLACE; ONE SECOND PT IS TALKING ABOUT COUNTING PENNIES AND THE NEXT SENTENCE IS ABOUT BEING IN RL. PT DID COOPERATE AND EAT 90% OF LUNCH THIS AFTERNOON. TOLERATED WELL. PT TAKING IN PO LIQUIDS WELL. PT HAS VOIDED.
--- NOTE | 2022-06-14 18:23 | NUR ---
PT RESTING IN BED AT THIS TIME. PT CURRENTLY TALKING ALOUD, PT IS THE ONLY ONE IN ROOM. THIS NURSE WAS IN ROOM TO FEED PT DINNER. PT TOLERATED WELL, ATE ABOUT 70%. PT THEN DID STATE THAT HE WAS DONE. PT ASKING TO SMOKE CIGARETTE AND PUT ON SHOES. PT ALSO TALKED ABOUT "BOMBING" BUT DIDNT REFERENCE ANYTHING ELSE. PT CALLED THIS NURSE ADINA. ATTEMPTS TO REORIENT PT WERE UNSUCCESSFUL. PT APPEARS ANNOYED BUT WAS COOPERATIVE WITH EATING DINNER. PT CONTINUES TO TALK IF THERE IS SOMEONE ELSE IN ROOM WITH HIM. [facility] SCREENING COMPLETED THIS AFTERNOON. CIRCULATION TO EXTREMITIES REMAINS WNL.
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
[2022-06-15] VITALS (34 sets, daily range): BP systolic 113–139; BP diastolic 61–99; PULSE 89–131; TEMP 98–99
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
--- NOTE | 2022-06-15 05:00 | NUR ---
FIRST TIME OF THIS SHIFT THAT PATIENT CORRECTLY STATES [facility] THE [facility]ITAL. HOWEVER, STILL DISORIENTED TO SITUATION AND HIS ONLY GOAL IS TO LEAVE HOSPITAL TO GET WHISKEY AND CIGARETTES. CONTINUES TO SEE AND TALK TO OTHER PEOPLE IN THE ROOM. PT AGREED TO SNACK, ATE THREE BITES OF CHOCOLATE PUDDING AND THEN SAYS THATS ENOUGH.
--- NOTE | 2022-06-15 07:00 | NUR ---
PT RESTING IN BED. PT IS RESTRAINTS. PT ONLY ORIENTED TO SELF. PT'S VSS. PT TALKING TO SELF.
[2022-06-15 08:36] LABS: HEMATOCRIT 37.9 % (42.0-52.0); HEMOGLOBIN 12.4 g/dl (13.5-18.0); MEAN CELL VOLUME 103 fl (80.0-100.0); MEAN CORPUSCULAR HEMOGLOBIN 34 pg (27-31); MEAN CORPUSCULAR HGB CONC 33 g/dl (33.0-37.0); MEAN PLATELET VOLUME 10.7 fl (7.4-10.4); PLATELET COUNT 516 K/mm3 (130-400); RED BLOOD COUNT 3.69 M/mm3 (4.20-5.60); REDCELL DISTRIBUTION WIDTH-CV 12.8 % (11.5-14.5)
[2022-06-15 08:52] LABS: CALCIUM 8.9 mg/dL (8.4-10.2); CREATININE, serum 0.68 mg/dL (0.72-1.25)
[2022-06-15 10:40] LABS: EOSINOPHIL 8 % (0-4); LYMPHOCYTE 26 % (20.0-51.0); NEUTROPHILS 54 % (42.0-75.2)
[2022-06-15 10:41] LABS: HYPOCHROMIA 1+; PLATELET ESTIMATE INCREASED (NORMAL)
--- NOTE | 2022-06-15 12:29 | NUR ---
City Planning Engineer rounds: Patient is still in restraints. Patient appeared much more calm than yesterday. Patient allowed City Planning Engineer to pray for him.
--- NOTE | 2022-06-15 13:01 | NUR ---
THIS RN CALLED DOROTHY FOR STATUS UPDATE ON THE SCREENING DONE 06/14/22. I WAS INFORMED THAT [facility] IS REVIEWING THE PT'S CASE.
[2022-06-16] VITALS (1311 sets, daily range): BP systolic 96–128; BP diastolic 68–90; PULSE 89–124; TEMP 97.9–99.5; O2SAT 78–100
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
--- NOTE | 2022-06-16 00:58 | NUR ---
patient disoriented, but calm and cooperative at this time. leather, locked restraints removed and replaced with non-violent soft wrist restraints and soft mitts. will continue to mointor patient and alert provider if patient should require violent restraints again
[2022-06-16 06:20] LABS: BASO # 0.1 K/mm3 (0.0-0.2); BASO % 1.2 % (0.0-2.0); EOS # 0.4 K/mm3 (0.0-0.7); EOS % 6.7 % (0.0-4.0); GRAN # 2.9 K/mm3 (1.4-6.5); GRAN % 44.4 % (42.2-75.2); HEMATOCRIT 37.3 % (42.0-52.0); HEMOGLOBIN 12.8 g/dl (13.5-18.0); LYMPH # 2.3 K/mm3 (1.2-3.4); LYMPH % 34.8 % (20.0-51.0); MEAN CELL VOLUME 99 fl (80.0-100.0); MEAN CORPUSCULAR HEMOGLOBIN 34 pg (27-31); MEAN CORPUSCULAR HGB CONC 34 g/dl (33.0-37.0); MONO # 0.8 K/mm3 (0.1-0.6); PLATELET COUNT 422 K/mm3 (130-400); RED BLOOD COUNT 3.78 M/mm3 (4.20-5.60); REDCELL DISTRIBUTION WIDTH-CV 12.7 % (11.5-14.5)
[2022-06-16 06:57] LABS: ALBUMIN 3.1 gm/dL (3.5-5.0); BILIRUBIN,TOTAL 0.7 mg/dL (0.2-1.2); CALCIUM 9.3 mg/dL (8.4-10.2); CREATININE, serum 0.69 mg/dL (0.72-1.25); PHOSPHOROUS 5.6 mg/dL (2.3-4.7); POTASSIUM 3.9 mmol/L (3.5-4.5); TOTAL PROTEIN 6.5 gm/dL (6.2-8.1)
--- NOTE | 2022-06-16 16:03 | NUR ---
overhead line worker contacted Susan Mart, RNCM with [facility] and she referred me to Esperanza Kaufman and Zeina Desai with the [facility] for psychiatric placement. Worker left messages for both and will await her call.
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
--- NOTE | 2022-06-16 21:54 | NUR ---
PATIENT CALM AND COOPERATIVE; OCCASIONAL VERBAL OUTBURSTS, BUT THEY DO NOT SEEM TO BE DIRECTED AT STAFF. PATIENT NOTED TO STILL BE HALLUCINATING. PATIENT IS REDIRECTABLE AT THIS TIME--HOWEVER, PATIENT IS TO REMAIN IN LEATHER RESTARINTS PER PROVIDER
--- NOTE | 2022-06-16 22:38 | NUR ---
SEE PREVIOUS NURSING NOTES
--- NOTE | 2022-06-16 22:45 | NUR ---
SEE PREVIOUS NOTES
[2022-06-17] VITALS (216 sets, daily range): BP systolic 107–139; BP diastolic 68–92; PULSE 94–114; TEMP 98.6–99.1; O2SAT 79–99
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
[2022-06-17 05:50] LABS: BASO # 0.1 K/mm3 (0.0-0.2); BASO % 1.2 % (0.0-2.0); EOS # 0.4 K/mm3 (0.0-0.7); EOS % 5.5 % (0.0-4.0); GRAN # 4.1 K/mm3 (1.4-6.5); GRAN % 52.9 % (42.2-75.2); HEMOGLOBIN 11.9 g/dl (13.5-18.0); LYMPH # 2.3 K/mm3 (1.2-3.4); LYMPH % 29.1 % (20.0-51.0); MEAN CELL VOLUME 98 fl (80.0-100.0); MEAN CORPUSCULAR HEMOGLOBIN 34 pg (27-31); MEAN CORPUSCULAR HGB CONC 34 g/dl (33.0-37.0); MEAN PLATELET VOLUME 10.3 fl (7.4-10.4); MONO # 0.8 K/mm3 (0.1-0.6); MONO % 10.5 % (1.7-9.3); PLATELET COUNT 402 K/mm3 (130-400); RED BLOOD COUNT 3.55 M/mm3 (4.20-5.60); REDCELL DISTRIBUTION WIDTH-CV 12.5 % (11.5-14.5)
[2022-06-17 05:55] LABS: HEMATOCRIT 34.8 % (42.0-52.0)
[2022-06-17 06:10] LABS: BILIRUBIN,TOTAL 0.6 mg/dL (0.2-1.2); CALCIUM 9.1 mg/dL (8.4-10.2); CREATININE, serum 0.71 mg/dL (0.72-1.25); POTASSIUM 3.9 mmol/L (3.5-4.5); TOTAL PROTEIN 6.2 gm/dL (6.2-8.1)
--- NOTE | 2022-06-17 08:40 | NUR ---
freezing room worker contacted Nargis with [facility] psychiatric unit and placed patient on their list. Nargis states they have referrals waiting from May 22.
--- NOTE | 2022-06-17 14:51 | NUR ---
Phone call made to patients to discuss guardianship. Jeff states that she will willing to be the patients guardian. Completed guardianship paperwork sent to Waylon Pineda. Patient is presented with petitioned court documents and attended court hearing this morning via zoom, where the police investigator ruled that he is involuntary and will need a psych placement.
--- NOTE | 2022-06-17 15:04 | NUR ---
vamp cut out worker made calls to the [facility] and [facility] with confirmation that they do not have an open inpatient psychiatric bed available. Social workers will make a morning and afternoon call to above facilities to check on bed availability as they do not keep a waiting list. Worker contacted the [facility] and are working through issue, if it is possible to cross state lines with an involuntary status. ICU nursing aware of the above information.
--- NOTE | 2022-06-17 15:38 | NUR ---
1430- AMBULATED PATIENT IN THE [facility]. PT WAS MOVED TO ROOM 7. PT IS NO LONGER IN RESTRAINTS. PT HAS BEEN CALM SINCE THIS AM AND HAS BEEN PARTICIPATING IN COVNERSATIONS. PT HAS VERBALIZED UNDERSTANDING OF WHAT BEHAVIORS IS ACCETPABLE.
--- NOTE | 2022-06-17 22:00 | NUR ---
PT HAS BEEN ALERT, FULLY ORIENTED, PLEASANT AND COOPERATIVE THIS SHIFT. UNDERSTANDS GOALS AND PLAN OF CARE FOR HOSPITALIZATION AND HOPEFUL PLACEMENT FOR CONTINUED CARE. VSS, WILL CONTINUE TO MONITOR.
[2022-06-18] VITALS (10 sets, daily range): BP systolic 10–130; BP diastolic 51–93; PULSE 88–118; TEMP 98.1–98.9; O2SAT 63–65
[2022-06-18 06:41] LABS: BASO # 0.1 K/mm3 (0.0-0.2); BASO % 1.1 % (0.0-2.0); EOS # 0.5 K/mm3 (0.0-0.7); EOS % 6.4 % (0.0-4.0); GRAN % 42.9 % (42.2-75.2); LYMPH # 2.5 K/mm3 (1.2-3.4); LYMPH % 35.6 % (20.0-51.0); MEAN CELL VOLUME 98 fl (80.0-100.0); MEAN CORPUSCULAR HEMOGLOBIN 34 pg (27-31); MEAN CORPUSCULAR HGB CONC 34 g/dl (33.0-37.0); MEAN PLATELET VOLUME 10.3 fl (7.4-10.4); MONO # 0.9 K/mm3 (0.1-0.6); MONO % 13.1 % (1.7-9.3); PLATELET COUNT 371 K/mm3 (130-400); RED BLOOD COUNT 3.55 M/mm3 (4.20-5.60); REDCELL DISTRIBUTION WIDTH-CV 12.6 % (11.5-14.5)
[2022-06-18 06:44] LABS: HEMATOCRIT 34.9 % (42.0-52.0)
[2022-06-18 06:50] LABS: ANION GAP 11 mmol/L (7-16); BLOOD UREA NITROGEN 9 mg/dL (9-21); CALCIUM 9.1 mg/dL (8.4-10.2); CARBON DIOXIDE 22 mmol/L (22-29); CHLORIDE 104 mmol/L (98-107); CREATININE, serum 0.73 mg/dL (0.72-1.25); GLUCOSE 89 mg/dL (70-99); POTASSIUM 3.6 mmol/L (3.5-4.5); SODIUM 137 mmol/L (136-145)
[2022-06-18 07:12] LABS: VALPROIC ACID (DEPAKENE) < 12.5 ug/mL (43.5-90.5)
--- NOTE | 2022-06-18 10:05 | NUR ---
workers compensation paralegal confirmed that the [facility] does not have an open bed this date. Worker left message for the [facility].
--- NOTE | 2022-06-18 12:08 | NUR ---
Arrived to room 314 via wheelchair from ICU.
--- NOTE | 2022-06-18 12:17 | NUR ---
PT REPORT GIVENT TO ODIN FLORES. PT MOVED VIA WHEELCHAIR TO ROOM 314 ON MEDICAL. PT HAS CALL LIGHT. INDUSTRIAL LOCOMOTIVE OPERATOR IN ROOM. CARE RELINQUISHED AT THIS TIME.
--- NOTE | 2022-06-18 15:35 | NUR ---
SPOKE WITH DR. FORMAN ABOUT POSSIBLY PLACING PATIENT AT [facility]. PASSED ON TO SOCIAL WORK TO LOOK INTO PHYSCH SERVICES AT [facility], AND [place]. PATIENT HAS BEEN COMPLIANT AND NON AGGRESSIVE SINCE ARRIVING TO THE FLOOR.
--- NOTE | 2022-06-18 17:56 | NUR ---
PATIENT CAME TO OUR FLOOR THIS AFTERNOON AFTER BEING IN THE ICU FOR 20+ DAYS. PATIENT WAS IN 4 PT RESTRAINTS DUE TO AGGRESSION. PATIENT HAS BEEN OFF OF RESTRAINTS FOR 24-48 HOURS. PATIENT HAS BEEN PLEASANT AND HAS ALLOWED US TO TAKE CARE OF HIM. VITAL SIGNS ARE STABLE, OTHER THAN SINUS TACHY. GEODON MEDICATION WAS CHANGED TO PO PATIENT IS TOLERATING NOW. STILL ON A LIBIRUM TAPER. WILL REMAIN ON VOLUNTARY HOLD WITH VISITORS ALLOWED. SOCIAL WORK IS LOOKIN AT [facility] PLACEMENT.
--- NOTE | 2022-06-18 22:15 | NUR ---
SHIFT NURSING ASSESSMENT COMPLETED. THE PATIENT DENIED PAIN OR DISCOMFORT. NO S/S OF DISTRESS NOTED. PLAN OF CARE AND EVENING MEDICATIONS DISCUSSED ALL QUESTIONS AND CONCERNS ADDRESSED. THE PATIENT DENIED NEEDS AT THIS TIME. CALL LIGHT WITHIN REACH WELL OTHER PERSONAL BELONGINGS. BED IN LOWEST POSITION. WILL MONITOR.
[2022-06-19] VITALS (10 sets, daily range): BP systolic 104–129; BP diastolic 55–81; PULSE 83–106; TEMP 98–98.9
[2022-06-19 08:46] LABS: CALCIUM 8.7 mg/dL (8.4-10.2); CREATININE, serum 0.74 mg/dL (0.72-1.25); POTASSIUM 4.2 mmol/L (3.5-4.5)
--- NOTE | 2022-06-19 14:30 | NUR ---
Glaze Sprayer contacted Peggy at [facility] to inquire about rescreening patient as he is now alert and oriented, not requring any restraints and cooperative with cares. Peggy advised patient is court ordered for [facility] psych placement and the [facility] has no beds today. Peggy requested medical updates, which [facility] faxed to fax#[phone]. AVIS contacted both the [facility] transfer line and transfer line and left messages inquring about bed availability.
--- NOTE | 2022-06-19 15:00 | NUR ---
[facility] has no beds today and also questioned if patient was appropriate for their services based on Wernicke's diagnosis. SW was advised once a bed was available they would call for clinicals.
--- NOTE | 2022-06-19 16:43 | NUR ---
PATIENT HAS BEEN IN [facility] TODAY. NO ISSUES WITH TAKING MEDICATIONS. APPETITE IS GOOD WITH NO CONCERNS OF PAIN. AWAITING PLACEMENT FOR [facility].
--- NOTE | 2022-06-19 22:47 | NUR ---
THIS TAXATION AGENT ASSUMED CARE OF THIS PATIENT AT 20:15.
--- NOTE | 2022-06-20 02:55 | NUR ---
NURSING SHIFT ASSESSMENT COMPLETED. THE PATIENT WAS ALERT AND ORIENTED AND APPROPRIATE AT THE TIME OF THE ASSESSMENT. THE PATIENT DENIED NEEDS AT THIS TIME. THE PATIENT ALSO DENIED PAIN. BED IN LOWEST POSITION. THE PATIENT IS UP INDEPENDENTLY IN HIS ROOM. THE PATIENT HAS A STEADY GAIT. WILL MONITOR.
[2022-06-20 04:08] VITALS: BP 104/63; PULSE 74; TEMP 97.9
[2022-06-20 07:30] VITALS: BP 117/78; PULSE 83; TEMP 98.4
[2022-06-20 10:15] LABS: COLLECTION METHOD CLEAN CATCH
--- NOTE | 2022-06-20 10:22 | NUR ---
PATIENT ALERT AND AWAKE, SITTING ON BENCH IN ROOM. PATIENT IS PLEASANT AND COOPERATIVE. CALL LIGHT WITH IN REACH. PATIETN VOICES NO NEEDS OR COMPLAINTS AT THIS TIME.
[2022-06-20 10:37] LABS: MUCOUS Present (NOT PRESENT); SQUAMOUS EPITHELIAL None Seen /hpf (0-10); URINE BACTERIA None Seen /hpf (NONE SEEN); URINE RBC 0-2 /hpf (0-2)
[2022-06-20 10:38] LABS: URINE APPEARANCE Clear (CLEAR/HAZY); URINE COLOR Yellow (YELLOW); URINE GLUCOSE Negative (NEGATIVE); URINE KETONE TRACE (NEGATIVE); URINE PROTEIN(semi-quant) Negative (NEGATIVE)
[2022-06-20 10:39] LABS: URINE BLOOD Negative (NEGATIVE); URINE NITRATE Negative (NEGATIVE); URINE UROBILINOGEN 0.2 (NEGATIVE)
[2022-06-20 11:09] VITALS: BP 148/85; PULSE 108; TEMP 98.9
--- NOTE | 2022-06-20 15:27 | NUR ---
Steph at the [facility] called and advised they have a bed available. [facility] faxed requested clinical records. Steph contacted [facility] and advised after review, they have declined. Steph referenced patient's Wernicke's diagnosis and stated the team felt patient was not going to make any more improvements cognitively. Steph also advised even though patient has not had any outbursts in 48 hours, he is still at risk of needing one to one and they cannot manage that. The [facility] requested [place] revisit patient. [facility] updated Hospitalist.
--- NOTE | 2022-06-20 15:30 | NUR ---
Phone call made to Elliot inform that the the [facility] has declined this patient and would like for the to reach out to OSH for reevaluation.
[2022-06-20 16:07] VITALS: BP 127/84; PULSE 103; TEMP 99.1
--- NOTE | 2022-06-20 20:00 | NUR ---
Pt eating with female visitor at bedside. A&O x4. VSS. Shift assessment completed, pt states feeling bored and like he is wasting his time. ANTHONY INT CDI. Pt complaint with his medication. Tremor on hands are noticed, but pt states not feeling anxious or nervous. Tele on. Pt is on seizure precautions, and call light is within reach.
[2022-06-20 23:14] VITALS: BP 120/65; PULSE 100; TEMP 98.8
[2022-06-21 03:50] VITALS: BP 115/65; PULSE 82; TEMP 98.3
[2022-06-21 06:43] LABS: BASO # 0.1 K/mm3 (0.0-0.2); BASO % 0.7 % (0.0-2.0); EOS # 0.8 K/mm3 (0.0-0.7); EOS % 11.1 % (0.0-4.0); GRAN # 3.3 K/mm3 (1.4-6.5); GRAN % 44.1 % (42.2-75.2); HEMOGLOBIN 11.3 g/dl (13.5-18.0); LYMPH # 2.3 K/mm3 (1.2-3.4); MEAN CORPUSCULAR HEMOGLOBIN 34 pg (27-31); MEAN CORPUSCULAR HGB CONC 33 g/dl (33.0-37.0); MEAN PLATELET VOLUME 10.6 fl (7.4-10.4); MONO # 0.9 K/mm3 (0.1-0.6); MONO % 12.3 % (1.7-9.3); PLATELET COUNT 284 K/mm3 (130-400); RED BLOOD COUNT 3.35 M/mm3 (4.20-5.60); REDCELL DISTRIBUTION WIDTH-CV 12.7 % (11.5-14.5)
[2022-06-21 07:00] LABS: HEMATOCRIT 34.4 % (42.0-52.0); MEAN CELL VOLUME 103 fl (80.0-100.0)
[2022-06-21 07:08] LABS: CALCIUM 8.8 mg/dL (8.4-10.2); CREATININE, serum 0.67 mg/dL (0.72-1.25); POTASSIUM 3.9 mmol/L (3.5-4.5)
[2022-06-21 08:19] VITALS: BP 116/68; PULSE 84; TEMP 98.2
[2022-06-21 11:42] VITALS: BP 115/93; PULSE 112; TEMP 98.8
--- NOTE | 2022-06-21 12:20 | NUR ---
Rod Buster rounds: Patient likes to be called by his middle name which is Chance. Patient remembered that I prayed for him in the ICU a week ago. Patient wants to go home but thinks that the decision for that will not be made until July 01. We watched the tailgaters at the [employer] and Patient shared a little bit of his life away from the hospital.
[2022-06-21 15:55] VITALS: BP 127/73; PULSE 96; TEMP 99.3
--- NOTE | 2022-06-21 20:00 | NUR ---
Pt was sitting down in bed, using his cellphone. A&O x4. Pt states feeling bored and frustrated of being in the hospital. Shift assessment completed. No pain or discomfort were reported at this time. ANTHONY INT CDI, Tele on. Seizure precautions remain in place. Call light is within reach.
[2022-06-21 20:35] VITALS: BP 136/70; PULSE 90; TEMP 98.5
[2022-06-21 23:47] VITALS: BP 124/62; PULSE 66; TEMP 98.6
[2022-06-22] VITALS (7 sets, daily range): BP systolic 122–140; BP diastolic 72–84; PULSE 82–105; TEMP 98–99.7
[2022-06-22 06:40] LABS: BASO % 0.5 % (0.0-2.0); EOS % 12.6 % (0.0-4.0); GRAN # 3.4 K/mm3 (1.4-6.5); GRAN % 43.5 % (42.2-75.2); HEMOGLOBIN 11.5 g/dl (13.5-18.0); LYMPH # 2.2 K/mm3 (1.2-3.4); LYMPH % 28.5 % (20.0-51.0); MEAN CELL VOLUME 99 fl (80.0-100.0); MEAN CORPUSCULAR HEMOGLOBIN 34 pg (27-31); MEAN CORPUSCULAR HGB CONC 34 g/dl (33.0-37.0); MEAN PLATELET VOLUME 10.2 fl (7.4-10.4); MONO # 1.1 K/mm3 (0.1-0.6); MONO % 14.2 % (1.7-9.3); PLATELET COUNT 272 K/mm3 (130-400); RED BLOOD COUNT 3.37 M/mm3 (4.20-5.60); REDCELL DISTRIBUTION WIDTH-CV 12.7 % (11.5-14.5)
[2022-06-22 06:44] LABS: HEMATOCRIT 33.4 % (42.0-52.0)
[2022-06-22 07:00] LABS: CALCIUM 8.8 mg/dL (8.4-10.2); CREATININE, serum 0.7 mg/dL (0.72-1.25)
--- NOTE | 2022-06-22 12:00 | NUR ---
Pt sitting up in chair. Shift assessment completed. Telemetry on; tachycardic. LCTA. INT on L forearm intact; no edema or redness. Tremors noted during assessment. Pt states he is "feeling fine." No further requests at this time. Call light within reach.
--- NOTE | 2022-06-22 20:00 | NUR ---
Pt is lying down in bed. Shift assessment completed. A&O x4. Pt asked about his telemetry. He reports having asked Dr. Tafoya about DC his Tele. He also asked about a tingling sensation that he has on his right foot toes. He states that he asked before about this. LFA INT, no edema or redness. No other needs or concerns were expressed. Call light is within reach.
[2022-06-23] VITALS (7 sets, daily range): BP systolic 104–138; BP diastolic 64–82; PULSE 85–101; TEMP 98.1–98.9
[2022-06-23 07:04] LABS: CALCIUM 9.1 mg/dL (8.4-10.2); CREATININE, serum 0.7 mg/dL (0.72-1.25); POTASSIUM 4.3 mmol/L (3.5-4.5)
[2022-06-23 07:12] LABS: BASO % 0.4 % (0.0-2.0); EOS # 0.8 K/mm3 (0.0-0.7); EOS % 9.1 % (0.0-4.0); GRAN # 3.1 K/mm3 (1.4-6.5); GRAN % 36.9 % (42.2-75.2); HEMATOCRIT 37.9 % (42.0-52.0); HEMOGLOBIN 12.4 g/dl (13.5-18.0); LYMPH # 3.2 K/mm3 (1.2-3.4); LYMPH % 38.5 % (20.0-51.0); MEAN CELL VOLUME 103 fl (80.0-100.0); MEAN CORPUSCULAR HEMOGLOBIN 34 pg (27-31); MEAN CORPUSCULAR HGB CONC 33 g/dl (33.0-37.0); MEAN PLATELET VOLUME 11.3 fl (7.4-10.4); MONO # 1.2 K/mm3 (0.1-0.6); MONO % 14.4 % (1.7-9.3); PLATELET COUNT 295 K/mm3 (130-400); RED BLOOD COUNT 3.68 M/mm3 (4.20-5.60); REDCELL DISTRIBUTION WIDTH-CV 12.8 % (11.5-14.5)
--- NOTE | 2022-06-23 07:52 | NUR ---
PT RESTING IN BED. MORNING MEDICATIONS GIVEN. SHIFT ASSESSMENT COMPLETED. PT DENIES ANY PAIN OR NEEDS AT THIS TIME. AMBULATING AROUND ROOM INDEPENDENTLY. WILL CONTINUE TO MONITOR.
--- NOTE | 2022-06-23 15:18 | NUR ---
Unit Trust Manager spoke with Sunitha, Therapist at [facility] about plan for patient as the [facility] had declined. Sunitha advised she did not think the VA could decline as it is court ordered. Sunitha will call the VA today to get further clarification. [facility] followed up with Sunitha in the afternoon and she still had no response from the VA.
[2022-06-24 03:28] VITALS: BP 117/59; PULSE 81; TEMP 98.1
[2022-06-24 07:14] VITALS: BP 111/67; PULSE 110; TEMP 98.5
--- NOTE | 2022-06-24 10:25 | NUR ---
Pt assessment complete. Pt is ambulatory in his room, he is pleasant and cooperative. He denies any pain. No SOB or nausea present. No needs at this time. Call light within reach.
--- NOTE | 2022-06-24 11:02 | NUR ---
Spoke with [facility], they state patient has been denied by [facility] as well as [place]. Requesting to speaking with the physician if patient could be rescreened by Elliot. Dr. Tafoya agreed with this, Elliot notified.
[2022-06-24 11:39] VITALS: BP 137/84; PULSE 96; TEMP 98.4
[2022-06-24 15:35] VITALS: BP 135/90; PULSE 107; TEMP 98.2
--- NOTE | 2022-06-24 15:49 | NUR ---
Recycling Tech was notified by RN that [facility] will rescreen patient today as he has been denied by the [facility] and [place]. AVIS spoke with Sunitah, Therapist at [facility] following screen. Sunitha advised her recommendation will be for discharge home. Sunitha has sent her updated screen to [facility]. Once dismissal paperwork from court is received, patient may be discharged home. AVIS updated patient and patient's , Jeff. Both are in agreement. AVIS discussed psychiatry follow up with patient who advised he plans to call Dr. Enriquez, Psychiatrist to get established. AVIS provided contact information for Dr. Vincent, Psychiatrist in case Dr. Enriquez has a wait list. AVIS advised patient that Dr. Vincent is taking new patient's, but requires patient to call to establish appointment. AVIS contacted Antionette at [facility] to provide update. AVIS scheduled follow up with Dr. Teresa for 07/01/22 at 0830 and provided appointment to RN and patient. AVIS also provided patient with list of resource for AA meetings per his request. Patient desires to go home at this time and has an appointment with [facility] on Thursday. Discharge Plan: Home, pending court documents being faxed over
--- NOTE | 2022-06-24 18:48 | NUR ---
Pt had uneventful day. Screened by Elliot. Pleasant and cooperative with cares. Did visualize patient tremors through the day. No needs at this time.
[2022-06-24 19:56] VITALS: BP 126/79; PULSE 104; TEMP 98.7
[2022-06-25 05:36] VITALS: BP 118/71; PULSE 98; TEMP 98
[2022-06-25 07:06] VITALS: BP 120/78; PULSE 113; TEMP 98.4
--- NOTE | 2022-06-25 08:09 | NUR ---
PT AMBULATING AROUND ROOM THIS AM. MORNING MEDICATIONS GIVEN. SHIFT ASSESSMENT COMPLETED. PT DENIES ANY PAIN OR NEEDS. PT HOPEFUL TO D/C HOME TODAY.
[2022-06-25] MEDS ORDERED: MIRTAZAPINE7.5 MG PO (08:35)
[2022-06-25] MEDS ORDERED: GEODON 20 MG20 MG PO (08:36)
[2022-06-25] MEDS ORDERED: CENTRUM SILVER1 CTB PO (08:37)
[2022-06-25 11:15] VITALS: BP 148/85; PULSE 92; TEMP 98.8
--- NOTE | 2022-06-25 11:29 | NUR ---
Conventions Reservationist received both Elliot's updated note from re-screen as well as court documents dismissing patient's involuntary care. SW placed both in chart. Patient to discharge home today. AVIS met with patient to review resources and follow up. Patient plans to call Dr. Vincent, Psychiatrist this afternoon to establish outpatient care. AVIS also provided additional resource of [facility] and phone number. AVIS contacted patient's , Jeff and notified her that discharge will be today. Discharge Plan: Home
--- NOTE | 2022-06-25 12:32 | NUR ---
DISCHARGE INSTRUCTIONS GIVEN, ALL QUESTIONS ANSWERED. D/C IV. PT ESCORTED OFF OF UNIT BY [facility] STAFF.
== END 2022-06-25 12:33 | disposition home or self-care (01) | DRG 896 ==
LOC: COL.ER 02:29 → ICU 04:11 → MEDICAL 06-18 12:07
PROVIDERS: Emergency Medicine; Hospitalist; Internal Medicine; Internal Medicine Pulmonary Disease; Student in an Organized Health Care Education/Training Program; ADMIT Student in an Organized Health Care Education/Training Program
PROC: 02HV33Z Insertion of Infusion Device into Superior Vena Cava, Percutaneous Approach (ICD-10-PCS; 2022-05-26)
PROC: 0BH17EZ Insertion of Endotracheal Airway into Trachea, Via Natural or Artificial Opening (ICD-10-PCS; 2022-05-26)
PROC: 5A1955Z Respiratory Ventilation, Greater than 96 Consecutive Hours (ICD-10-PCS; 2022-05-26)
PROC: 0BD98ZX Extraction of Lingula Bronchus, Via Natural or Artificial Opening Endoscopic, Diagnostic (ICD-10-PCS; principal; 2022-05-30)
PROC: 0BD48ZX Extraction of Right Upper Lobe Bronchus, Via Natural or Artificial Opening Endoscopic, Diagnostic (ICD-10-PCS; 2022-05-30)
PROC: 0BD58ZX Extraction of Right Middle Lobe Bronchus, Via Natural or Artificial Opening Endoscopic, Diagnostic (ICD-10-PCS; 2022-05-30)
PROC: 0BD68ZX Extraction of Right Lower Lobe Bronchus, Via Natural or Artificial Opening Endoscopic, Diagnostic (ICD-10-PCS; 2022-05-30)
PROC: 0BDB8ZX Extraction of Left Lower Lobe Bronchus, Via Natural or Artificial Opening Endoscopic, Diagnostic (ICD-10-PCS; 2022-05-30)
PROC: 02HV33Z Insertion of Infusion Device into Superior Vena Cava, Percutaneous Approach (ICD-10-PCS; 2022-06-07)
DX: F10.131 Alcohol abuse with withdrawal delirium (principal); G92.8 Other toxic encephalopathy; J18.9 Pneumonia, unspecified organism; K85.90 Acute pancreatitis without necrosis or infection, unspecified; F10.151 Alcohol abuse with alcohol-induced psychotic disorder with hallucinations; E87.3 Alkalosis; E87.1 Hypo-osmolality and hyponatremia; N39.0 Urinary tract infection, site not specified; E87.29 Other acidosis; E46 Unspecified protein-calorie malnutrition; Z68.1 Body mass index [BMI] 19.9 or less, adult; E87.6 Hypokalemia; E83.42 Hypomagnesemia; F17.210 Nicotine dependence, cigarettes, uncomplicated; F43.10 Post-traumatic stress disorder, unspecified; F12.90 Cannabis use, unspecified, uncomplicated; G40.909 Epilepsy, unspecified, not intractable, without status epilepticus; E83.39 Other disorders of phosphorus metabolism; K76.0 Fatty (change of) liver, not elsewhere classified; Z20.822 Contact with and (suspected) exposure to COVID-19; Y90.0 Blood alcohol level of less than 20 mg/100 ml; D69.6 Thrombocytopenia, unspecified; D72.829 Elevated white blood cell count, unspecified; R09.02 Hypoxemia; D75.839 Thrombocytosis, unspecified; I95.9 Hypotension, unspecified
CPT/HCPCS: A9284; C1751; C9113; J0610; J0696; J1630; J1644; J2060; J2212; J2250; J2543; J2560; J2704; J3010; J3370; J3411; J3475; J3480; J3486; J7030; J7050; J7131; Q9967

== ENCOUNTER 2022-10-18 08:09 | Emergency (ER) | payer OTHER, BC ==
[~2022-10-18] VITALS: Ht 185.4 cm; Wt 75.0 kg
[~2022-10-18 08:09] MED LIST changes: +CENTRUM SILVER1 CTB PO; +GEODON 20 MG20 MG PO; +MIRTAZAPINE7.5 MG PO; +VALIUM 10MG10 MG/TAB PO; +ZOFRAN ODT4 MG PO
[2022-10-18] MEDS ORDERED: LIBRIUM 25M25 MG/CAP PO (09:28)
--- NOTE | 2022-10-18 10:34 | NUR ---
SW met pt and to complete psychotherapist social worker referral. SW provided resouces information for alcohol & drug addictin treatment. No other needs at this time.
[2022-10-18 10:37] VITALS: BP 132/89; PULSE 93; TEMP 97.8
[2022-10-18] MEDS ORDERED: ZOFRAN ODT4 MG PO (12:35)
== END 2022-10-18 10:47 | disposition home or self-care (01) ==
LOC: COL.ER 08:09
DX: F10.239 Alcohol dependence with withdrawal, unspecified (principal); F17.200 Nicotine dependence, unspecified, uncomplicated; Z28.310 Unvaccinated for COVID-19
CPT/HCPCS: J2060; J2405

== ENCOUNTER 2022-11-26 09:58 | Emergency (ER) | payer OTHER, BC ==
[~2022-11-26] VITALS: Ht 185.4 cm; Wt 75.0 kg
[~2022-11-26 09:58] MED LIST changes: +LIBRIUM 25M25 MG/CAP PO
[2022-11-26 10:04] VITALS: TEMP 98.5
[2022-11-26] MEDS ORDERED: LIBRIUM 10M10 MG/CAP PO (10:18)
[2022-11-26] MEDS ORDERED: PROTONIX 40MG T40 MG PO (10:19)
[2022-11-26] MEDS ORDERED: REGLAN 10MG10 MG/TAB PO (10:19)
[2022-11-26] MEDS ORDERED: PROZAC 20MG20 MG PO (10:19)
[2022-11-26 10:56] LABS: BASO # 0.1 K/mm3 (0.0-0.2); BASO % 0.7 % (0.0-2.0); EOS % 0.2 % (0.0-4.0); GRAN # 6.3 K/mm3 (1.4-6.5); GRAN % 71.7 % (42.2-75.2); HEMATOCRIT 45.5 % (42.0-52.0); LYMPH # 1.8 K/mm3 (1.2-3.4); LYMPH % 19.8 % (20.0-51.0); MEAN CELL VOLUME 98 fl (80.0-100.0); MEAN CORPUSCULAR HEMOGLOBIN 35 pg (27-31); MEAN CORPUSCULAR HGB CONC 35 g/dl (33.0-37.0); MEAN PLATELET VOLUME 10.2 fl (7.4-10.4); MONO # 0.6 K/mm3 (0.1-0.6); MONO % 7.1 % (1.7-9.3); PLATELET COUNT 205 K/mm3 (130-400); RED BLOOD COUNT 4.64 M/mm3 (4.20-5.60); REDCELL DISTRIBUTION WIDTH-CV 12.4 % (11.5-14.5)
[2022-11-26 11:00] LABS: COLLECTION METHOD CATHETER
[2022-11-26 11:07] LABS: MUCOUS Present (NOT PRESENT); SQUAMOUS EPITHELIAL 0-2 /hpf (0-10); URINE BACTERIA None Seen /hpf (NONE SEEN); URINE RBC 0-2 /hpf (0-2)
[2022-11-26 11:10] LABS: PH 6.5 (5.0-8.5); URINE APPEARANCE Clear (CLEAR/HAZY); URINE BLOOD Negative (NEGATIVE); URINE COLOR Amber (YELLOW); URINE GLUCOSE Negative (NEGATIVE); URINE KETONE TRACE (NEGATIVE); URINE NITRATE Positive (NEGATIVE); URINE PROTEIN(semi-quant) 3+ (NEGATIVE)
[2022-11-26 11:16] LABS: BILIRUBIN,TOTAL 0.6 mg/dL (0.2-1.2); C-REACTIVE PROTEIN 0.31 mg/dL (0.00-0.50); CALCIUM 8.5 mg/dL (8.4-10.2); CREATININE, serum 0.78 mg/dL (0.72-1.25); MAGNESIUM 1.7 mg/dL (1.6-2.6); TOTAL PROTEIN 6.8 gm/dL (6.2-8.1)
[2022-11-26 11:20] LABS: TRICYCLIC ANTIDEPRESS URINE NEGATIVE
[2022-11-26 12:59] VITALS: BP 145/82; PULSE 90
== END 2022-11-26 12:59 | disposition home or self-care (01) ==
LOC: COL.ER 09:58
PROVIDERS: Nurse Practitioner Family
DX: R10.10 Upper abdominal pain, unspecified (principal); S60.512A Abrasion of left hand, initial encounter; F10.239 Alcohol dependence with withdrawal, unspecified; E88.89 Other specified metabolic disorders; R16.0 Hepatomegaly, not elsewhere classified; R41.82 Altered mental status, unspecified; F17.200 Nicotine dependence, unspecified, uncomplicated; Y90.7 Blood alcohol level of 200-239 mg/100 ml; Z28.310 Unvaccinated for COVID-19; W18.30XA Fall on same level, unspecified, initial encounter; W22.8XXA Striking against or struck by other objects, initial encounter
CPT/HCPCS: J3411; J7030; Q9967

== ENCOUNTER 2023-09-01 09:36 | Emergency (ER) | payer OTHER ==
[~2023-09-01] VITALS: Ht 185.4 cm; Wt 80.9 kg
[~2023-09-01 09:36] MED LIST changes: +DUO-KAPS1 CAP PO; +LIBRIUM 10M10 MG/CAP PO; +PROTONIX 40MG T40 MG PO; +PROZAC 20MG20 MG PO; +REGLAN 10MG10 MG/TAB PO
[2023-09-01 09:44] VITALS: TEMP 98.3
[2023-09-01 10:30] LABS: BASO # 0.1 K/mm3 (0.0-0.2); BASO % 0.7 % (0.0-2.0); EOS % 0.3 % (0.0-4.0); GRAN # 6.4 K/mm3 (1.4-6.5); HEMATOCRIT 47.3 % (42.0-52.0); LYMPH # 1.7 K/mm3 (1.2-3.4); LYMPH % 19.2 % (20.0-51.0); MEAN CELL VOLUME 94 fl (80.0-100.0); MEAN CORPUSCULAR HEMOGLOBIN 34 pg (27-31); MEAN CORPUSCULAR HGB CONC 36 g/dl (33.0-37.0); MEAN PLATELET VOLUME 10.8 fl (7.4-10.4); MONO # 0.7 K/mm3 (0.1-0.6); MONO % 7.5 % (1.7-9.3); PLATELET COUNT 195 K/mm3 (130-400); RED BLOOD COUNT 5.05 M/mm3 (4.20-5.60); REDCELL DISTRIBUTION WIDTH-CV 11.7 % (11.5-14.5)
[2023-09-01 10:44] LABS: ALBUMIN 3.5 gm/dL (3.5-5.0); BILIRUBIN,TOTAL 0.8 mg/dL (0.2-1.2); CALCIUM 8.7 mg/dL (8.4-10.2); CREATININE, serum 0.99 mg/dL (0.72-1.25); MAGNESIUM 1.5 mg/dL (1.6-2.6); PHOSPHOROUS 3.1 mg/dL (2.3-4.7); TOTAL PROTEIN 6.2 gm/dL (6.2-8.1)
[2023-09-01 10:50] LABS: TROPONIN-I 0.011 ng/mL (0.00-0.033)
[2023-09-01 11:04] LABS: POTASSIUM 2.8 mmol/L (3.5-4.5)
[2023-09-01] MEDS ORDERED: K-DUR20 MEQ PO (15:31)
[2023-09-01] MEDS ORDERED: HIGH POTENCY M1 EAC1 PO (15:31)
[2023-09-01 15:42] VITALS: BP 135/97; PULSE 104
== END 2023-09-01 15:42 | disposition home or self-care (01) ==
LOC: COL.ER 09:36
PROVIDERS: Emergency Medicine
DX: R11.2 Nausea with vomiting, unspecified (principal); E87.6 Hypokalemia; F17.210 Nicotine dependence, cigarettes, uncomplicated
CPT/HCPCS: J1790; J3411; J3475; J3480; J7120

== ENCOUNTER 2023-09-23 16:10 | Emergency (ER) | payer OTHER ==
[~2023-09-23] VITALS: Ht 185.4 cm; Wt 70.5 kg
[~2023-09-23 16:10] MED LIST changes: +HIGH POTENCY M1 EAC1 PO; +K-DUR20 MEQ PO
[2023-09-23 16:11] VITALS: TEMP 97.4
[2023-09-23 16:29] LABS: BASO # 0.1 K/mm3 (0.0-0.2); BASO % 1.4 % (0.0-2.0); EOS # 0.1 K/mm3 (0.0-0.7); EOS % 1.5 % (0.0-4.0); GRAN # 2.4 K/mm3 (1.4-6.5); GRAN % 41.4 % (42.2-75.2); HEMATOCRIT 43.7 % (42.0-52.0); HEMOGLOBIN 15.4 g/dl (13.5-18.0); LYMPH # 2.7 K/mm3 (1.2-3.4); LYMPH % 45.3 % (20.0-51.0); MEAN CELL VOLUME 96 fl (80.0-100.0); MEAN CORPUSCULAR HEMOGLOBIN 34 pg (27-31); MEAN CORPUSCULAR HGB CONC 35 g/dl (33.0-37.0); MEAN PLATELET VOLUME 9.8 fl (7.4-10.4); MONO # 0.6 K/mm3 (0.1-0.6); MONO % 10.2 % (1.7-9.3); PLATELET COUNT 302 K/mm3 (130-400); RED BLOOD COUNT 4.55 M/mm3 (4.20-5.60); REDCELL DISTRIBUTION WIDTH-CV 11.9 % (11.5-14.5)
[2023-09-23 16:49] LABS: ALANINE AMINOTRANSFERASE 97 U/L (0-55); ALBUMIN 3.5 gm/dL (3.5-5.0); ALKALINE PHOSPHATASE 119 U/L (40-150); ANION GAP 15 mmol/L (7-16); AST,SGOT 141 U/L (5-34); BILIRUBIN,TOTAL 0.5 mg/dL (0.2-1.2); BLOOD UREA NITROGEN < 5 mg/dL (9-21); C-REACTIVE PROTEIN 0.04 mg/dL (0.00-0.50); CALCIUM 8.2 mg/dL (8.4-10.2); CARBON DIOXIDE 18 mmol/L (22-29); CHLORIDE 108 mmol/L (98-107); CREATININE, serum 0.72 mg/dL (0.72-1.25); GLUCOSE 116 mg/dL (70-99); SODIUM 141 mmol/L (136-145); TOTAL PROTEIN 6.4 gm/dL (6.2-8.1)
[2023-09-23 16:54] LABS: ALCOHOL(ethanol),MEDICAL 502 mg/dL (0-10)
[2023-09-23 18:30] VITALS: BP 121/80; PULSE 103
== END 2023-09-23 18:30 | disposition home or self-care (01) ==
LOC: COL.ER 16:10
PROVIDERS: Family Medicine
DX: F10.20 Alcohol dependence, uncomplicated (principal); S00.81XA Abrasion of other part of head, initial encounter; Y90.8 Blood alcohol level of 240 mg/100 ml or more; W19.XXXA Unspecified fall, initial encounter
CPT/HCPCS: J2405; J3411; J7030

== ENCOUNTER 2023-11-17 18:03 | Inpatient (IN) | payer OTHER ==
[~2023-11-17] VITALS: Ht 185.4 cm; Wt 73.5 kg
[2023-11-17] MEDS ORDERED: LORazepam 2 MG/ML 1 ML VIAL IV ONE ×2 (18:45→23:00)
[2023-11-17 19:02] LABS: BASO % 0.2 % (0.0-2.0); EOS % 0.2 % (0.0-4.0); GRAN # 5.8 K/mm3 (1.4-6.5); GRAN % 66.9 % (42.2-75.2); HEMATOCRIT 45.1 % (42.0-52.0); HEMOGLOBIN 16.8 g/dl (13.5-18.0); LYMPH # 2.1 K/mm3 (1.2-3.4); LYMPH % 23.8 % (20.0-51.0); MEAN CELL VOLUME 89 fl (80.0-100.0); MEAN CORPUSCULAR HEMOGLOBIN 33 pg (27-31); MEAN CORPUSCULAR HGB CONC 37 g/dl (33.0-37.0); MEAN PLATELET VOLUME 10.5 fl (7.4-10.4); MONO # 0.7 K/mm3 (0.1-0.6); MONO % 8.4 % (1.7-9.3); PLATELET COUNT 176 K/mm3 (130-400); RED BLOOD COUNT 5.07 M/mm3 (4.20-5.60); REDCELL DISTRIBUTION WIDTH-CV 11.4 % (11.5-14.5)
[2023-11-17 19:24] LABS: ALBUMIN 3.8 g/dL (3.5-5.0); BILIRUBIN,TOTAL 1.2 mg/dL (0.2-1.2); CALCIUM 9.3 mg/dL (8.4-10.2); CREATININE, serum 0.85 mg/dL (0.72-1.25); MAGNESIUM 1.3 mg/dL (1.6-2.6); TOTAL PROTEIN 7.2 g/dl (6.2-8.1)
[2023-11-17 19:25] LABS: POTASSIUM 2.8 mEq/L (3.5-4.5)
[2023-11-17 19:28] LABS: COLLECTION METHOD CLEAN CATCH
[2023-11-17 19:38] LABS: PH 7.5 (5.0-8.5); URINE APPEARANCE CLEAR (CLEAR/HAZY); URINE BLOOD NEGATIVE (NEGATIVE); URINE COLOR Dark Yellow (YELLOW); URINE GLUCOSE NEGATIVE (NEGATIVE); URINE KETONE NEGATIVE (NEGATIVE); URINE NITRATE NEGATIVE (NEGATIVE); URINE PROTEIN(semi-quant) 1+ (NEGATIVE)
[2023-11-17 19:43] LABS: TRICYCLIC ANTIDEPRESS URINE NEGATIVE (NEGATIVE)
[2023-11-17] MEDS ORDERED: Magnesium Sulfate 4% 50 ML IV ONE (19:45)
[2023-11-17] MEDS ORDERED: Folic Acid 1 MG,Thiamine 200 MG in NS 1,000 ML IV ONE (19:45)
[2023-11-17] MEDS ORDERED: Ondansetron 4 MG/2 ML VIAL IV ONE (20:00)
[2023-11-17] MEDS ORDERED: REVIA 50MG TABL50 MG PO (23:41)
[2023-11-17] MEDS ORDERED: MULTIPLE VITAMI1 CAP PO (23:43)
[2023-11-17] MEDS ORDERED: K-TAB20 PO (23:43)
[2023-11-17] MEDS ORDERED: MELATIN 3 MG-11 TAB PO (23:45)
[2023-11-17] MEDS ORDERED: Mag/Al Hydrox/Simeth Susp 30 ML CUP PO PRN (23:45)
[2023-11-17] MEDS ORDERED: Melatonin 3 MG TAB PO PRN (23:45)
[2023-11-17] MEDS ORDERED: Ondansetron 4 MG/2 ML VIAL IV PRN (23:45)
[2023-11-17] MEDS ORDERED: LR 1,000 ML IV SCH (23:45)
[2023-11-17] MEDS ORDERED: diazePAM 5 MG TAB PO PRN (23:45)
[2023-11-17] MEDS ORDERED: Acetaminophen 325 MG TAB PO PRN (23:45)
[2023-11-17] MEDS ORDERED: Docusate Sodium 100 MG CAP PO PRN (23:45)
[2023-11-18] VITALS (16 sets, daily range): BP systolic 102–137; BP diastolic 56–89; PULSE 72–92; TEMP 98.1–98.8
--- NOTE | 2023-11-18 02:09 | NUR ---
ER CALLED FOR REPORT ON PATIENT. REPORT RECIEVED FROM NASIR NEWBY.
--- NOTE | 2023-11-18 02:20 | NUR ---
MALE PATIENT ARRIVED TO ROOM #312 VIA STRETCHER FROM ER. PATIENT ASSISTED TO BED WITH STAND BY ASSIST. GAIT STEADY. PATIENT HELPED TO REPOSITION FOR COMFORT. TELEMETRY INTACT. LR INFUSING INTO RIGHT FOREARM WITH NO COMPLICATIONS NOTED. 2 BOXES OF MARBARLO CIGERETTES PLACED IN PATIENT BAD IN CLOSET. PATIENT REQUESTED CUP OF ICE AND WAS GIVEN. INITAL INTERVIEW AND ASSESSMENT COMPLETED. PATIENT TOLERATED WELL. PATIENT VERBALIZED UNDERSTANDING OF CALL LIGHT AND BED CONTROLS ALONG WITH SMOKING POLICY FOR HOSPITAL. ALL NEEDS MET. BED IN LOW POSITION WITH WHEELS LOCKED WITH RAILS UP X2 AND CALL LIGHT WITHIN REACH. BED ALARM ON.
--- NOTE | 2023-11-18 03:09 | NUR ---
CIWA SCORE OF 14. 2.5 MG OF VALIUM GIVEN PER ORDERS. PATIENT TOLERATED WELL.
--- NOTE | 2023-11-18 04:32 | NUR ---
CIWA SCORE OF 11. 2.5 MG OF IV VALIUM GIVEN PER ORDERS. PATIENT TOLERATED WELL.
[2023-11-18 08:05] LABS: CALCIUM 8.8 mg/dL (8.4-10.2); CREATININE, serum 0.75 mg/dL (0.72-1.25); PHOSPHOROUS 3.5 mg/dL (2.3-4.7)
[2023-11-18 08:08] LABS: POTASSIUM 2.6 mEq/L (3.5-4.5)
[2023-11-18 08:12] LABS: BASO % 0.3 % (0.0-2.0); EOS # 0.1 K/mm3 (0.0-0.7); EOS % 0.9 % (0.0-4.0); GRAN % 62.6 % (42.2-75.2); HEMATOCRIT 40.3 % (42.0-52.0); LYMPH # 2.2 K/mm3 (1.2-3.4); LYMPH % 27.8 % (20.0-51.0); MEAN CELL VOLUME 92 fl (80.0-100.0); MEAN CORPUSCULAR HGB CONC 35 g/dl (33.0-37.0); MONO # 0.6 K/mm3 (0.1-0.6); PLATELET COUNT 142 K/mm3 (130-400); RED BLOOD COUNT 4.37 M/mm3 (4.20-5.60); REDCELL DISTRIBUTION WIDTH-CV 11.6 % (11.5-14.5)
[2023-11-18 08:18] LABS: HEMOGLOBIN 14.2 g/dl (13.5-18.0); MEAN CORPUSCULAR HEMOGLOBIN 32 pg (27-31)
--- NOTE | 2023-11-18 08:30 | NUR ---
Dr. Flores notified of critical Potassium lab value. New order rec'd for K+ protocol initiated.
[2023-11-18] MEDS ORDERED: Potassium Bicarbonate/Citrate 20 MEQ Effervescent TAB PO SCH (08:45)
[2023-11-18] MEDS ORDERED: Nicotine 21 MG DAILY PATCH TD SCH (09:00)
[2023-11-18] MEDS ORDERED: Multivitamin TAB PO SCH (09:00)
[2023-11-18] MEDS ORDERED: Folic Acid 1 MG TAB PO SCH (09:00)
[2023-11-18] MEDS ORDERED: FLUoxetine 20 MG CAP PO SCH (09:00)
[2023-11-18] MEDS ORDERED: Thiamine 100 MG TAB PO SCH (09:00)
[2023-11-18] MEDS ORDERED: FOLIC ACID 11 MG/TA1 PO (10:39)
[2023-11-18] MEDS ORDERED: NATURE'S BLEND100 M2 PO (10:39)
[2023-11-18] MEDS ORDERED: MASON NATURAL2000 IU PO (10:49)
[2023-11-18] MEDS ORDERED: IMIQUIMOD5% TP (10:50)
[2023-11-18] MEDS ORDERED: NICODERM C14 MG/PATC TD (10:51)
[2023-11-18] MEDS ORDERED: NICORETTE GUM2 MG PO (10:51)
[2023-11-18] MEDS ORDERED: NATURAL POTASS595 MG PO (10:52)
[2023-11-18] MEDS ORDERED: LIDODERM 5% PATC1 EA TP (10:56)
[2023-11-18] MEDS ORDERED: VOLTAREN GEL 1%1 TU TP (10:56)
--- NOTE | 2023-11-18 14:03 | NUR ---
Initial visit; Patient thanked Special Trackwork Blacksmith for looking in on him and offering God's blessings. Special Trackwork Blacksmith inquired if patient would like prayer or for her to keep him in her prayers. Patient was receptive to Special Trackwork Blacksmith keeping him in her prayers for healing.
--- NOTE | 2023-11-18 14:45 | NUR ---
drawer hardware worker met with patient to discuss discharge planning. Patient reports he lives in his truck currently around the [facility]. Sravani, friend, P# [phone], reported to nursing that she would pickup driver patient and he could stay with her and her (patient's boss) for a while. Patient stated he is aware of this plan and is okay with it. David is isaiahethansel's ex-girlfriend and second contact, P# [phone]. [facility] [place]. [facility] [place] but for immediate needs he gets them at [facility]. No issues affording medications. INsurance is [place] [facility]. No DPOA-HC and not interested in completing one at this time. No DME, Patient reports to be independent with ADLS and is able to transport himself to and from appointments. Patient plans to return to Sravani's home at time of discharge. DIscharge plan: Home
--- NOTE | 2023-11-18 19:10 | NUR ---
PATIENT SITTING UP IN BED EATING DINNER WITH FRIEND AT BEDSIDE WITH TV ON WITH NO ACUTE DISTRESS NOTED. PATIENT ON ROOM AIR. LR INFUSING INTO RIGHT FOREARM WITH NO COMPLICATIONS NOTED. TELEMETRY INTACT. PATIENT DENIES ANY NEEDS AT THIS TIME. PATIENT CARE ASSUMED FROM KARI AT THIS TIME. BED IN LOW POSITION WITH WHEELS LOCKED WITH RAILS UP X3 AND CALL LIGHT WITHIN REACH.
--- NOTE | 2023-11-18 19:13 | NUR ---
Valium administered po prn per protocol for CIWA > or equal to 8. Denies pain since receiving Tylenol this morning. Zofran administered for c/o nausea. Bedside report given to ODIN Reich.
--- NOTE | 2023-11-18 20:00 | NUR ---
PATIENT RESTING IN BED WITH TV ON WITH NO FAMILY PRESENT WTIH NO ACUTE DISTRESS NOTED. PATIENT ON ROOM AIR. LR INFUSING INTO RIGHT FOREARM WITH NO COMPLICATIONS NOTED. ASSESSMENT AND MEDICATION ADMINISTRATION COMPLETED AT THIS TIME. PATIENT TOLERATED WELL. PATIENT ATE 50% OF HIS DINNER TRAY AND TRAY REMOVED. PATIENT DENIES ANY NEEDS AT THIS TIME. BED IN LOW POSITION WITH WHEELS LOCKED WITH RAILS UP X3 AND CALL LIGHT WITHIN REACH.
[2023-11-19] VITALS (10 sets, daily range): BP systolic 104–128; BP diastolic 60–85; PULSE 76–99; TEMP 98.1–98.8
--- NOTE | 2023-11-19 07:46 | NUR ---
Patient laying in bed, A&Ox4. VSS. IV CDI, fluids infusing. Denies pain and discomfort. Detox protocol in place. Seizure precautions in place. Call light within reach. Bed alarm on
[2023-11-19 10:03] LABS: CALCIUM 8.4 mg/dL (8.4-10.2); CREATININE, serum 0.73 mg/dL (0.72-1.25); MAGNESIUM 1.7 mg/dL (1.6-2.6); POTASSIUM 3.2 mEq/L (3.5-4.5)
[2023-11-19] MEDS ORDERED: *Potassium Replacement Protocol MC SCH (10:45)
[2023-11-19] MEDS ORDERED: Potassium Bicarbonate/Citrate 20 MEQ Effervescent TAB PO SCH (10:45)
--- NOTE | 2023-11-19 15:35 | NUR ---
Discharge paperwork reviewed with the patient. Patient verbalized an understanding to follow doctors orders. IV removed, tip intact. GAuze and coban applied. Patient getting dressed and waiting on a ride. Call light within reach
--- NOTE | 2023-11-19 15:43 | NUR ---
Patient ambulated independently to patient entrance to wait for his ride. Personal belongings with the patient. No further needs expressed
== END 2023-11-19 15:44 | disposition home or self-care (01) | DRG 897 ==
LOC: COL.ER 18:03 → MEDICAL 23:41
PROVIDERS: Nurse Practitioner; Physician Assistant; ADMIT Internal Medicine
DX: F10.131 Alcohol abuse with withdrawal delirium (principal); E87.1 Hypo-osmolality and hyponatremia; F31.9 Bipolar disorder, unspecified; K21.9 Gastro-esophageal reflux disease without esophagitis; G40.909 Epilepsy, unspecified, not intractable, without status epilepticus; E87.6 Hypokalemia; E86.9 Volume depletion, unspecified; E83.42 Hypomagnesemia; F17.210 Nicotine dependence, cigarettes, uncomplicated; Y90.4 Blood alcohol level of 80-99 mg/100 ml; Z79.899 Other long term (current) drug therapy; Z23 Encounter for immunization
CPT/HCPCS: J2060; J2405; J3360; J3411; J3475; J7030; J7120